=== PATIENT | female | born 1970 | race Caucasian/White ===

== ENCOUNTER 2024-09-19 11:01 | Inpatient (IN) ==
[2024-09-19 12:19] LABS: Basophils # (auto) 0.04 K/uL (0.00-0.20); Basophils % (auto) 0.5 %; Eosinophils # (auto) 0.03 K/uL (0.00-0.50); Eosinophils % (auto) 0.3 %; Hematocrit (blood only) 48.1 % (37.0-47.0); Hemoglobin 15.7 g/dl (12.0-16.0); Immature Granulocytes # (auto) 0.02 K/uL (0.01-0.20); Immature Granulocytes % (auto) 0.2 %; Mean Corpuscular Hemoglobin 28.8 pg (25.0-34.0); Mean Corpuscular Hgb Conc 32.6 g/dL (32.0-36.0); Mean Corpuscular Volume 88.3 fL (80.0-100.0); Mean Platelet Volume 9.5 fL (9.4-12.4); Monocytes # (auto) 0.84 K/uL (0.11-0.59); Monocytes % (auto) 9.5 %; Neutrophils # (auto) 6.37 K/uL (1.40-6.50); Neutrophils % (auto) 72.5 %; Platelet Count 412 K/uL (130-400); RDW Coefficient of Variation 13.2 % (11.5-14.5); RDW Standard Deviation 42.5 fL (36.4-46.3); Red Blood Count 5.45 M/uL (4.20-5.40)
[2024-09-19 12:24] LABS: INR 0.9 (0.9-1.1); Prothrombin Time 10.2 Seconds (9.0-12.0)
[2024-09-19] MEDS: fentaNYL citrate PF 100 MCG/2 ML VIAL IV PRN (12:40)
[2024-09-19] MEDS: ACETAMINOPHEN 1,000 MG/100 ML VIAL IV STA (12:41)
[2024-09-19] MEDS: PANTOprazole 40 MG/10 ML SYR IV ONE (12:41)
[2024-09-19 12:46] LABS: Calcium 9.7 mg/dl (8.6-10.3); Creatinine Clr Calc Pharmacy 116.4 ml/min; Potassium 3.7 mmol/L (3.5-5.1)
[2024-09-19 12:50] LABS: Troponin I High Sensitivity 5.1 pg/ml (0-14)
[2024-09-19 13:02] LABS: Albumin Globulin Ratio 1.3 (0.9-2); Albumin Level 4.4 gm/dl (3.4-5.0); Bilirubin,Total 1.8 mg/dl (0.2-1.0); Globulin 3.5 gm/dl (2.5-4.0); Total Protein 7.9 gm/dl (6.0-8.3)
[2024-09-19] MEDS: OPTIRAY 320 125ml IV ONE (13:23)
[2024-09-19 13:32] LABS: Appearance Urine Clear (Clear); Bacteria Urine Automated 4+ (None Seen); Bilirubin Urine Negative (Negative); Blood Urine Negative (Negative); Cast Urine Automated 0-2 /lpf (0-2); Color Urine Dark Yellow; Epithelial Cell Urine Auto 0-2 /hpf (0-2); Glucose Urine UA 2+ (Negative); Ketones Urine Negative (Negative); Leukocyte Esterase Urine Negative (Negative); Nitrite Urine Negative (Negative); Protein Urine Trace (Negative); RBC Urine Automated 0-2 /hpf (0-2); Specific Gravity Urine 1.041 (1.000-1.030); Urobilinogen Urine Negative (Negative); WBC Urine Automated 21-50 /hpf (0-5); pH Urine 7.5 (4.5-7.5)
--- NOTE | 2024-09-19 13:43 | CT Scan Report ---
CT OF THE ABDOMEN AND PELVIS WITH CONTRAST CLINICAL HISTORY: epigastric pain radiating into back COMPARISON STUDY: Renal ultrasound December 06, 2006. TECHNIQUE: Following IV administration of 120 mL of Optiray, axial images of the abdomen and pelvis w ere obtained from the lung bases to the proximal femurs. Images were reviewed in the axial, sagittal, and coronal planes. IV contrast was administered without complication. Automated exposure control w as utilized for the study. A dose lowering technique was utilized adhering to the principles of RAY Jovel. FINDINGS: The caliber of the abdominal aorta is normal. There is no abdominal aortic dissection. Ther e is mild aortoiliac atherosclerotic plaque. No pneumatosis, free air or portal venous gas is present . Mild biliary ductal dilatation is likely related to cholecystectomy. There is hepatic steatosis. No hepatic lesions are present. There is a 4.2 cm left renal cyst. The spleen, adrenal glands and pancr eas are unremarkable. Is no pancreatic ductal dilatation. The stomach is fluid-filled and mildly dist ended. There is no evidence for a bowel obstruction. The appendix is normal. Caliber and wall thickne ss of small and large bowel are normal. There is colonic diverticulosis without evidence for acute di verticulitis. Low-attenuation 1.8 cm right adnexal lesion favors an ovarian cyst. IMPRESSION: 1. Normal caliber abdominal aorta. No abdominal aortic dissection. Mild atherosclerotic plaque. 2. No bowel obstruction. No bowel wall thickening. Normal appendix. 3. Mildly distended fluid-filled stomach. 4. Hepatic steatosis. ACT 112: Negative or not required by law. Electronically signed by: Prieto Epps M.D. 09/19/2024 1:35 PM
[2024-09-19] MEDS: SODIUM CHLORIDE 0.9% 1,000 ML IV SCH (13:55)
--- NOTE | 2024-09-19 13:56 | Emergency Department Note ---
Impression & Plan Abdominal pain, Abnormal LFTs ED Provider Note ED Provider Note NAME: LCAEY KLEIN AGE:53 SEX: Female : 1970 ARRIVES VIA: Private vehicle INFORMANT: Patient ED PROVIDER(s): Magdalena Stephenson DO CHIEF COMPLAINT: Abdominal pain HPI: This is a 53-year-old female who presents to the emergency department due to concern for epigastric abdominal pain. Patient states she has had episodes of epigastric pain previously that seem to come and go. She states she had an episode overnight last night however it persisted and did not go away and has persisted into today. She states pain is similar to episode many years ago which ultimately resulted in her gallbladder being removed. She states she has been nauseated but did not vomit. She denies fevers or chills. No recent change in urine, stools, or any known sick contacts. No recent change in any medications. She states pain does radiate into her back. No treatment prior to arrival. She states she did see her PCP yesterday for a previously scheduled routine appointment. She did relay these intermittent episodes to her PCP and was scheduled for outpatient labs, CT, and ultrasound. PAST MEDICAL HISTORY:See Below PAST SURGICAL HISTORY:See Below FAMILY HISTORY:See Below SOCIAL HISTORY:See Below HOME MEDICATIONS:See Below ALLERGIES:See Below VITALS:See Below PHYSICAL EXAMINATION: GENERAL: alert, well appearing, well nourished, no distress, non-toxic EYE EXAM: normal conjunctiva, PERRL and EOM's grossly intact OROPHARYNX: no exudate, no erythema, lips, buccal mucosa, and tongue normal and mucous membranes are moist NECK: supple, no nuchal rigidity, no adenopathy, non-tender LUNGS: Clear to auscultation. Normal chest wall mechanics, no w/r/r HEART: no murmurs, S1 normal and S2 normal ABDOMEN: abdomen soft, epigastric tenderness with palpation, normo-active bowel sounds, no masses, no rebound or guarding. BACK: Back is symmetrical on inspection and there is no deformity, no midline tenderness, no CVA tenderness. SKIN: no rashes, petechiae, orbruising UPPER EXTREMITIES: upper extremities are grossly normal. FROM, nml pulses b/l. LOWER EXTREMITIES: No pitting edema. FROM, nml pulses b/l. NEURO EXAM: Normal sensorium, cranial nerves II-XII grossly intact, normal speech, no facial droop,nogross weakness of arms, no gross weakness of legs. Gross sensation intact. No ataxia. Vital Signs: reviewed and remarkable Differential Diagnosis: PUD, pancreatitis, colitis, bowel obstruction, viral syndrome, ACS, choledocholithiasis, hepatitis, foodborne illness, medication ADR, as well as others were considered MEDICAL DECISION MAKING: This is a 53-year-old female who presents emerged part due to concern for persistent epigastric pain. Patient with prior similar episodes however these were brief and self-limiting. Patient admitted to mod a coming nausea however no vomiting. She was afebrile vital signs stable. Labs drawn and sent, IV established, EKG performed at bedside interpreted me and patient monitored on telemetry. Patient sent for CT of the chest as well as abdomen and pelvis. Patient labs reveal abnormal LFTs. CTs are reassuring. Due to concern for occult choledocholithiasis, I discussed with her further evaluation with MRCP and she was in agreement. Unfortunately after discussing the patient via [place] text with Dr. Pimentel, if patient was found to have choledocholithiasis, she would need to be transferred as he is not on-call and the oncoming GI physician does not perform ERCPs. Patient made aware of this and verbalized understanding. She was maintained on IV fluids, and given IV Tylenol, IV Protonix, and IV fentanyl for her symptoms. She remained hemodynamically stable throughout. Patient signed out pending MRCP results and disposition. Consultation(s): 1542: Discussed with Dr. Pimentel. If MRCP negative, could be admitted here for hepatitis work up. 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 ER Treatment Provided: See below 1700: Patient signed out to Dr. Cameron pending MRCP results and further GI evaluation. Diagnostics Interpreted By Me: -ECG: Normal sinus at 83, normal axis, normal intervals, no acute ST/T wave changes -Cardiac Monitoring: An order was placed for continuous cardiac monitoring. The monitor shows a rate of 78 with normal sinus rhythm. -Laboratory studies: As stated above and show below. -Imaging studies: ct a/p - no perf, no sbo Triage Nursing Note Reviewed Prior/Outside Records Reviewed -office visit from PCP this week reviewed Past Med/Surg History Problem List (Updated 09/20/24 @ 16:22 by Alcides Nick MD) Hypothyroidism Hypertension Choledocholithiasis with obstruction Abnormal LFTs (Acute) Abdominal pain (Acute) Social History Smoking Status: Never smoker Hx Alcohol Use: No Hx Substance Use: No Preferred Language: Maltese Communication Ability: Effective [employer]al Program Specialist Required: No Beliefs That Will Affect Care: None Current Living Situation: Family Feels Safe at Home: Yes Safety Concerns: Feels Safe At This Time Assistive Devices: Glasses Allergies Allergies Allergy/AdvReac Type Severity Reaction Status Date / Time acetaminophen [From Vicodin] AdvReac Mild 'Made her Unverified 09/19/24 15:19 head really hot then really cold. Unpleasant exp" hydrocodone [From Vicodin] AdvReac Mild 'Made her Unverified 09/19/24 15:19 head really hot then really cold. Unpleasant exp" Home Meds Home Medications Medication Instructions Recorded Confirmed Gaviscon 1 dose PO DIRECTED PRN Other 09/19/24 09/19/24 amlodipine 5 mg tablet 5 mg PO QAM 09/19/24 09/19/24 atorvastatin 40 mg tablet 40 mg PO QAM 09/19/24 09/19/24 colestipol 1 gram tablet 2 g PO QAM 09/19/24 09/19/24 empagliflozin 25 mg tablet 25 mg PO QAM 09/19/24 09/19/24 (Jardiance) levothyroxine 112 mcg tablet 112 mcg PO QAM 09/19/24 09/19/24 losartan 100 mg tablet 100 mg PO QAM 09/19/24 09/19/24 metformin 500 mg tablet 500 mg PO QAM 09/19/24 09/19/24 omeprazole 20 mg capsule,delayed 20 mg PO QAM 09/19/24 09/19/24 release semaglutide 1 mg/dose (4 mg/3 mL) 1 mg subcut WK 09/19/24 09/19/24 subcutaneous pen injector (Ozempic) venlafaxine 25 mg tablet 25 mg PO UD 09/19/24 09/19/24 venlafaxine 37.5 mg 37.5 mg PO QAM 09/19/24 09/19/24 capsule,extended release 24 hr Results & Data (ED) Vital Signs Vital Signs - 24 hr 09/19/24 11:08 09/19/24 11:39 09/19/24 12:00 Temperature 36.8 C Temperature Source Temporal Artery Scan Pulse Rate 89 83 Pulse Rate [Right Brachial] 81 Pulse Rhythm [Right Brachial] Regular Pulse Strength [Right Brachial] Normal Respiratory Rate 18 18 Respiratory Effort / Characteristics Non-Labored Respiratory Depth Normal Respiratory Pattern Regular Blood Pressure 130/80 Blood Pressure [Right Arm] 144/79 H Blood Pressure Mean 96 Blood Pressure Mean [Right Arm] 100 Blood Pressure Position [Right Arm] Lying Pulse Oximetry 96 96 Oxygen Delivery Method Room Air Room Air Sepsis New/Unexplained Change in Mental Status No Sepsis Action Taken by Nursing No Action Required 09/19/24 12:02 09/19/24 15:00 09/19/24 15:21 Temperature Temperature Source Pulse Rate 74 Pulse Rate [Right Brachial] 107 H Pulse Rhythm [Right Brachial] Regular Pulse Strength [Right Brachial] Normal Respiratory Rate 18 Respiratory Effort / Characteristics Non-Labored Respiratory Depth Normal Respiratory Pattern Regular Blood Pressure Blood Pressure [Right Arm] 107/61 Blood Pressure Mean Blood Pressure Mean [Right Arm] 76 Blood Pressure Position [Right Arm] Pulse Oximetry 98 94 Oxygen Delivery Method Room Air Room Air Sepsis New/Unexplained Change in Mental Status Sepsis Action Taken by Nursing 09/19/24 18:56 09/19/24 19:00 Temperature Temperature Source Pulse Rate 70 Pulse Rate [Right Brachial] 69 Pulse Rhythm [Right Brachial] Pulse Strength [Right Brachial] Respiratory Rate 18 Respiratory Effort / Characteristics Non-Labored Spontaneous Respiratory Depth Normal Respiratory Pattern Regular Blood Pressure Blood Pressure [Right Arm] 116/75 Blood Pressure Mean Blood Pressure Mean [Right Arm] 88 Blood Pressure Position [Right Arm] Pulse Oximetry 94 Oxygen Delivery Method Room Air Sepsis New/Unexplained Change in Mental Status Sepsis Action Taken by Nursing Laboratory Data 09/20/24 05:38 09/20/24 05:38 Lab Results 09/19/24 Range/Units 11:35 WBC 8.80 (4.8-10.8) K/ul RBC 5.45 H (4.20-5.40) M/uL Hgb 15.7 (12.0-16.0) g/dl Hct 48.1 H (37.0-47.0) % MCV 88.3 (80.0-100.0) fL MCH 28.8 (25.0-34.0) pg MCHC 32.6 (32.0-36.0) g/dL RDW Std Deviation 42.5 (36.4-46.3) fL RDW Coeff of Teja 13.2 (11.5-14.5) % Plt Count 412 H (130-400) K/uL MPV 9.5 (9.4-12.4) fL Immature Gran % (Auto) 0.2 % Neut % (Auto) 72.5 % Lymph % (Auto) 17.0 % [place] % (Auto) 9.5 % Eos % (Auto) 0.3 % Baso % (Auto) 0.5 % Neut # (Auto) 6.37 (1.40-6.50) K/uL Lymph # (Auto) 1.50 (1.20-3.40) K/uL [place] # (Auto) 0.84 H (0.11-0.59) K/uL Eos # (Auto) 0.03 (0.00-0.50) K/uL Baso # (Auto) 0.04 (0.00-0.20) K/uL Immature Gran # (Auto) 0.02 (0.01-0.20) K/uL PT 10.2 (9.0-12.0) Seconds INR 0.9 (0.9-1.1) Sodium 140 (136-145) mmol/L Potassium 3.7 (3.5-5.1) mmol/L Chloride 103 (98-107) mmol/L Carbon Dioxide 28 (21-32) mmol/L Anion Gap 9 (3-11) BUN 17 (6-23) mg/dl Creatinine 0.63 (0.6-1.2) mg/dl Est Cr Clr Drug Dosing 116.4 ml/min eGFR 104.70 BUN/Creatinine Ratio 27.0 H (10-20) Glucose 131 H (70-99(Fasting)) mg/dl Calcium 9.7 (8.6-10.3) mg/dl Total Bilirubin 1.8 H (0.2-1.0) mg/dl AST 1622 H (13-39) U/L ALT 881 H (7-52) U/L Alkaline Phosphatase 159 H (34-104) U/L Troponin I High Sens 5.1 (0-14) pg/ml Total Protein 7.9 (6.0-8.3) gm/dl Albumin 4.4 (3.4-5.0) gm/dl Globulin 3.5 (2.5-4.0) gm/dl Albumin/Globulin Ratio 1.3 (0.9-2) Lipase 37 (11-82) U/L Urine Color Dark Yellow Urine Appearance Clear (Clear) Urine pH 7.5 (4.5-7.5) Ur Specific [place] 1.041 H (1.000-1.030) Urine Protein Trace H (Negative) Urine Glucose (UA) 2+ H (Negative) Urine Ketones Negative (Negative) Urine Blood Negative (Negative) Urine Nitrite Negative (Negative) Urine Bilirubin Negative (Negative) Urine Urobilinogen Negative (Negative) Ur Leukocyte Esterase Negative (Negative) Urine WBC (Auto) 21-50 H (0-5) /hpf Urine RBC (Auto) 0-2 (0-2) /hpf U Hyaline Cast (Auto) 0-2 (0-2) /lpf U Epithel Cells (Auto) 0-2 (0-2) /hpf Urine Bacteria (Auto) 4+ H (None Seen) Administered Medications Acetaminophen (Acetaminophen 325 Mg Tab) 650 mg PO Q4H PRN PRN Reason: Headache or Pain Stop: 10/20/24 08:05 Last Admin: 09/20/24 09:12 Dose: 650 mg Documented By: MIGUEL Amlodipine Besylate (Amlodipine Besylate 5 Mg Tab) 5 mg PO QAM [facility] Stop: 10/20/24 08:59 Last Admin: 09/20/24 09:13 Dose: 5 mg Documented By: MIGUEL Colestipol HCl (Colestipol Hcl 1 Gm Tab) 2 gm PO DAILY@1000 SON Stop: 10/20/24 09:59 Last Admin: 09/20/24 10:10 Dose: 2 gm Documented By: MIGUEL Sodium Chloride (Nss) 1,000 mls @ 125 mls/hr IV .Q8H [facility] Stop: 09/21/24 00:58 Last Admin: 09/20/24 19:54 Dose: 125 mls/hr Documented By: Infusion: 09/20/24 19:54 Dose: Infused Documented By: Admin: 09/20/24 12:18 Dose: 125 mls/hr Documented By: Infusion: 09/20/24 12:18 Dose: Infused Documented By: Infusion: 09/20/24 10:12 Dose: 0 mls/hr Documented By: Admin: 09/20/24 02:23 Dose: 125 mls/hr Documented By: MALAIKA Piperacillin Sod/Tazobactam Sod (Zosyn) 4.5 gm in 100 mls @ 25 mls/hr IV Q8H [facility]; Protocol Stop: 09/30/24 01:59 Last Infusion: 09/20/24 21:48 Dose: Infused Documented By: Admin: 09/20/24 17:47 Dose: 25 mls/hr Documented By: Infusion: 09/20/24 14:15 Dose: Infused Documented By: Admin: 09/20/24 10:10 Dose: 25 mls/hr Documented By: Infusion: 09/20/24 06:25 Dose: Infused Documented By: Admin: 09/20/24 02:23 Dose: 25 mls/hr Documented By: MALAIKA Insulin Aspart (Insulin Aspart Per Unit Charge) [facility] Stop: 10/20/24 00:58 Last Admin: 09/20/24 20:09 Dose: Not Given Documented By: Admin: 09/20/24 17:35 Dose: Not Given Documented By: Admin: 09/20/24 12:16 Dose: Not Given Documented By: Admin: 09/20/24 08:58 Dose: Not Given Documented By: Admin: 09/20/24 02:19 Dose: Not Given Documented By: MALAIKA Levothyroxine Sodium (Levothyroxine Sodium 112 Mcg Tablet) 112 mcg PO DAILYBB [facility] Stop: 10/20/24 06:29 Last Admin: 09/20/24 06:25 Dose: 112 mcg Documented By: MALAIKA Losartan Potassium (Losartan Potassium 50 Mg Tab) 100 mg PO [facility] Stop: 10/20/24 08:59 Last Admin: 09/20/24 09:14 Dose: 100 mg Documented By: MIGUEL Pantoprazole Sodium (Pantoprazole 40 Mg Tab) [facility] Stop: 10/20/24 08:59 Last Admin: 09/20/24 09:13 Dose: 40 mg Documented By: MIGUEL Venlafaxine HCl (Venlafaxine Hcl Xr 37.5 Mg Capxr) 37.5 mg PO QAM SON Stop: 10/20/24 08:59 Last Admin: 09/20/24 09:14 Dose: 37.5 mg Documented By: MIGUEL Discontinued Medications Fentanyl Citrate (Fentanyl Citrate Pf 100 Mcg/2 Ml Vial) 50 mcg IV Q15M PRN PRN Reason: Pain Stop: 10/03/24 12:14 Last Admin: 09/19/24 12:40 Dose: 50 mcg Documented By: DIANA Pantoprazole Sodium (Protonix) 40 mg in 10 mls @ 5 mls/min IV NOW ONE Stop: 09/19/24 12:16 Last Admin: 09/19/24 12:41 Dose: 5 mls/min Documented By: DIANA Acetaminophen (Ofirmev) 1,000 mg in 100 mls @ 400 mls/hr IV NOW STA Stop: 09/19/24 12:29 Last Infusion: 09/19/24 12:56 Dose: Infused Documented By: Admin: 09/19/24 12:41 Dose: 400 mls/hr Documented By: DIANA Sodium Chloride (Nss) 1,000 mls @ 250 mls/hr IV .Q4H SON Stop: 09/20/24 13:44 Last Admin: 09/20/24 07:06 Dose: Not Given Documented By: Infusion: 09/20/24 00:15 Dose: Infused Documented By: Infusion: 09/19/24 22:57 Dose: 250 mls/hr Documented By: Infusion: 09/19/24 22:20 Dose: 0 mls/hr Documented By: Admin: 09/19/24 19:21 Dose: 250 mls/hr Documented By: Infusion: 09/19/24 18:10 Dose: Infused Documented By: Admin: 09/19/24 13:55 Dose: 250 mls/hr Documented By: DIANA Piperacillin Sod/Tazobactam Sod (Zosyn) 4.5 gm in 120 mls @ 240 mls/hr IV NOW ONE Stop: 09/19/24 20:49 Last Infusion: 09/19/24 21:23 Dose: Infused Documented By: Admin: 09/19/24 20:32 Dose: 240 mls/hr Documented By: MARIIA Ioversol (Optiray 320 125ml) 120 ml IV ONCE ONE Stop: 09/19/24 13:24 Last Admin: 09/19/24 13:23 Dose: 120 ml Documented By: JAR Imaging Data Radiologist's Impression: Abdomen/Pelvis CT 09/19/24 12:31 CT OF THE ABDOMEN AND PELVIS WITH CONTRAST CLINICAL HISTORY: epigastric pain radiating into back COMPARISON STUDY: Renal ultrasound December 06, 2006. TECHNIQUE: Following IV administration of 120 mL of Optiray, axial images of the abdomen and pelvis were obtained from the lung bases to the proximal femurs. Images were reviewed in the axial, sagittal, and coronal planes. IV contrast was administered without complication. Automated exposure control was utilized for the study. A dose lowering technique was utilized adhering to the principles of ALARA. FINDINGS: The caliber of the abdominal aorta is normal. There is no abdominal aortic dissection. There is mild aortoiliac atherosclerotic plaque. No pneumatosis, free air or portal venous gas is present. Mild biliary ductal dilatation is likely related to cholecystectomy. There is hepatic steatosis. No hepatic lesions are present. There is a 4.2 cm left renal cyst. The spleen, adrenal glands and pancreas are unremarkable. Is no pancreatic ductal dilatation. The stomach is fluid-filled and mildly distended. There is no evidence for a bowel obstruction. The appendix is normal. Caliber and wall thickness of small and large bowel are normal. There is colonic diverticulosis without evidence for acute diverticulitis. Low-attenuation 1.8 cm right adnexal lesion favors an ovarian cyst. IMPRESSION: 1. Normal caliber abdominal aorta. No abdominal aortic dissection. Mild atherosclerotic plaque. 2. No bowel obstruction. No bowel wall thickening. Normal appendix. 3. Mildly distended fluid-filled stomach. 4. Hepatic steatosis. ACT 112: Negative or not required by law. Electronically signed by: Prieto Epps M.D. 09/19/2024 1:35 PM Chest CTA 09/19/24 12:31 CT angio chest dissec wo/w con CT DOSE: 3305.09 mGy.cm HISTORY: 53 years-old Female with epigastric pain into back. Acute chest and upper abdominal pain TECHNIQUE: Multiple CTA images of the chest were obtained with and without the intravenous administration of 120 ml Optiray. Coronal and sagittal MIPS were obtained from the axial data set and were submitted for review. All measurements were obtained according to NASCET criteria. A dose lowering technique was utilized adhering to the principles of ALARA. COMPARISON: CT abdomen and pelvis of same day, chest radiographs 07/19/2007 FINDINGS: CTA: Heart is normal in size. No pericardial effusion. Mild coronary artery calcifications. Mild atherosclerosis of the thoracic aorta without aneurysm or dissection. Patency of the imaged great vessels. No intramural or mediastinal hematoma. Normal pulmonary artery. CT CHEST: Thyroid nodules measure up to 10 mm. Indeterminate 1.1 x 1.4 cm ovoid soft tissue attenuating lesion within the anterior retrosternal mediastinal and image 77 series 10. No pathologic hilar or axillary lymph nodes. No pneumothorax, pleural effusion, airspace consolidation or pulmonary edema. There is a 1.7 cm subpleural lipoma of the lateral left hemithorax on image 113 series 10. There is mild subsegmental dependent bibasilar atelectasis. Central airways are patent. Unremarkable esophagus. Fatty infiltration of the liver. CT abdomen and pelvis is dictated separately. No acute fracture. IMPRESSION: 1. Unremarkable CTA of the chest. No thoracic aortic aneurysm or dissection. 2. No pulmonary emboli. 3. No pleural effusion or airspace consolidation. 4. 1.1 x 1.4 cm nodule within the anterior mediastinum may represent a mildly enlarged lymph node. Three-month follow-up chest CT recommended. ACT 112: Negative or not required by law. The above report was generated using voice recognition software. It may contain grammatical, syntax or spelling errors. Electronically signed by: Jerardo Hernandez M.D. 09/19/2024 1:52 PM Cholangiopancreatography MRI 09/19/24 14:14 MRCP ABDOMEN WITHOUT IV CONTRAST INDICATION: TECHNIQUE: MRI of the abdomen is obtained using multiplanar T1-weighted, T2-weighted, and diffusion-weighted sequences, including dynamic [id number] sequences. Thick slab and 3D MRCP are obtained. INTRAVENOUS CONTRAST: None COMPARISON: None available. FINDINGS: LOWER CHEST: Trace pleural fluids may be present. LIVER: Scattered hepatic cysts or hemangiomas. BILE DUCTS: There is moderate intrahepatic biliary dilation. There is distention of the common bile duct measuring up to 1.0 cm in diameter. There are hypointense materials measuring up to 5 mm in the distal CBD just upstream to the ampulla resulting in filling defects. There is also fairly abrupt tapering appearance of the common bile duct at the site. GALLBLADDER: Not definitively visualized, may be surgically absent or underdistended. SPLEEN: Normal. PANCREAS: Normal. ADRENAL GLANDS: Normal. KIDNEYS: Renal cysts. VISUALIZED BOWEL: No obstruction. VISUALIZED PERITONEUM: No ascites. LYMPH NODES: No lymphadenopathy. RETROPERITONEUM/VESSELS: Normal caliber abdominal aorta. ABDOMINAL WALL: Normal. BONES: Normal marrow signal. IMPRESSION: Suspected obstructive choledocholithiasis in the distal common bile duct at the ampulla resulting in upstream biliary obstruction with moderate intrahepatic biliary dilation. Superimposed additional process such as stricturing may be also present. Recommend further evaluation with ERCP. Electronically signed by Roque Yap 09-19-2024 7:30 PM Discharge Plan Visit Data Chief Complaint: Abdominal Pain Stated Complaint: ABD PAIN/TRAVELS INTO BACK ED Provider: Mitul Cameron Discharge Problem: Abdominal pain, Abnormal LFTs Patient Disposition: Admitted As Inpatient Discharge Instructions Interventions: ED Discharge Assessment Last Done: 09/20/24 00:20
--- NOTE | 2024-09-19 14:00 | CT Scan Report ---
CT angio chest dissec wo/w con CT DOSE: 3305.09 mGy.cm HISTORY: 53 years-old Female with epigastric pain into back. Acute chest and upper abdominal pain TECHNIQUE: Multiple CTA images of the chest were obtained with and without the intravenous administra tion of 120 ml Optiray. Coronal and sagittal MIPS were obtained from the axial data set and were sub mitted for review. All measurements were obtained according to NASCET criteria. A dose lowering tech nique was utilized adhering to the principles of ALARA. COMPARISON: CT abdomen and pelvis of same day, chest radiographs 07/19/2007 FINDINGS: CTA: Heart is normal in size. No pericardial effusion. Mild coronary artery calcifications. Mild atheroscl erosis of the thoracic aorta without aneurysm or dissection. Patency of the imaged great vessels. No intramural or mediastinal hematoma. Normal pulmonary artery. CT CHEST: Thyroid nodules measure up to 10 mm. Indeterminate 1.1 x 1.4 cm ovoid soft tissue attenuating lesion within the anterior retrosternal mediastinal and image 77 series 10. No pathologic hilar or axillary lymph nodes. No pneumothorax, pleural effusion, airspace consolidation or pulmonary edema. There is a 1.7 cm subpl eural lipoma of the lateral left hemithorax on image 113 series 10. There is mild subsegmental depend ent bibasilar atelectasis. Central airways are patent. Unremarkable esophagus. Fatty infiltration of the liver. CT abdomen and pelvis is dictated separately. No acute fracture. IMPRESSION: 1. Unremarkable CTA of the chest. No thoracic aortic aneurysm or dissection. 2. No pulmonary emboli. 3. No pleural effusion or airspace consolidation. 4. 1.1 x 1.4 cm nodule within the anterior mediastinum may represent a mildly enlarged lymph node. Th ree-month follow-up chest CT recommended. ACT 112: Negative or not required by law. The above report was generated using voice recognition software. It may contain grammatical, syntax o r spelling errors. Electronically signed by: Jerardo Hernandez M.D. 09/19/2024 1:52 PM
--- NOTE | 2024-09-19 15:08 | Electrocardiogram Report ---
Test Reason : Blood Pressure : */* mmHG Vent. Rate : 83 BPM Atrial Rate : 83 BPM P-R Int : 184 ms QRS Dur : 90 ms QT Int : 394 ms P-R-T Axes : 56 -16 42 degrees QTcB Int : 462 ms Normal sinus rhythm Poor R wave progression, consider anterior WA vs. lead placement vs. LVH Abnormal ECG No previous ECGs available Confirmed by Aaron Gracia ([id number]) on 09/19/2024 3:08:08 PM Referred By: REFERRED SELF Confirmed By: Aaron Gracia
--- NOTE | 2024-09-19 16:54 | Emergency Department Note ---
ED Visit Note 1651: Signout from Dr. Stephenson. 53-year-old female with abdominal pain for the last 2 days. White blood cell count normal. Labs show total bilirubin 1.8 AST 1622 ALT 881 alkaline phosphatase [birth year][address] negative. Awaiting MRCP. Based off of MRCP will speak with GI to see if the patient can stay here or needs to be transferred for an ERCP. Dr. Stephenson spoke with Dr. Pimentel from who stated that the MRCP does not show any ductal dilatation then the patient can be admitted here for hepatitis workup. 2001: MRCP shows suspected obstructive choledocholithiasis in the distal common bile duct at the ampulla resulting in upstream biliary obstruction with moderate intraventricular dilatation. Superimposed additional processes such as stricturing may also be present. They recommended an ERCP. Contacted [facility]. Spoke with Dr. Hawthorne who stated [facility] cannot do an ERCP until Sunday and it does not need to be done emergently as patient does not have findings consistent with cholangitis. He asks to see if the patient can go to [place] and if they cannot accept the patient to [place] he states they will accept the patient to [place]. Transfer center will contact [facility]. 2014: Spoke with Dr. Fontaine from [facility]. She recommends that the patient be transferred to [place] on Sunday night so procedure could be done Sunday morning as there is no one who can do the procedure until Sunday. She recommends giving the patient Zosyn and keep the patient NPO. I discussed this with the patient and she is very displeased with this. Patient family is asking if we can speak with [facility] to see if they could be transferred there to see if the procedure can be done any sooner. 2040: Spoke with Dr. Fern MILLS and Dr. Quinton APONTE at [facility]. They stated they would not be able to do the procedure emergently either. They stated they would probably do it on Sunday and if the patient preferred to go to [place] Sunday night then they can be transferred to [place] instead of going to a [facility] facility as planned on Sunday. 2104: Vital signs stable. Patient is expressing extreme dissatisfaction displeasure with the fact that no facility would be able to do an emergent procedure on her and she would have to wait until Sunday. She is asking about leaving and being discharged to get an ERCP outpatient but I recommended against this as I cannot schedule her for an ERCP with [facility]. I also explained to her the recommendation to continue getting antibiotics Zosyn which there is no good oral alternative. After long discussion, she states she does agree to stay in this hospital be transferred to [place] on Sunday or Sunday for procedure to be done on Sunday. [facility]. 2116: Vital signs stable. Spoke with Dr. Chand who agreed to accept the patient with the anticipated plan to transfer the patient on Sunday for a procedure on Sunday. .
--- NOTE | 2024-09-19 19:30 | Magnetic Resonance Report ---
MRCP ABDOMEN WITHOUT IV CONTRAST INDICATION: TECHNIQUE: MRI of the abdomen is obtained using multiplanar T1-weighted, T2-weighted, and diffusion-weighted sequences, including dynamic [id number] sequences. Thick slab and 3D MRCP are obtained. INTRAVENOUS CONTRAST: None COMPARISON: None available. FINDINGS: LOWER CHEST: Trace pleural fluids may be present. LIVER: Scattered hepatic cysts or hemangiomas. BILE DUCTS: There is moderate intrahepatic biliary dilation. There is distention of the common bile duct measuring up to 1.0 cm in diameter. There are hypointense materials measuring up to 5 mm in the distal CBD just upstream to the ampulla resulting in filling defects. There is also fairly abrupt tapering appearance of the common bile duct at the site. GALLBLADDER: Not definitively visualized, may be surgically absent or underdistended. SPLEEN: Normal. PANCREAS: Normal. ADRENAL GLANDS: Normal. KIDNEYS: Renal cysts. VISUALIZED BOWEL: No obstruction. VISUALIZED PERITONEUM: No ascites. LYMPH NODES: No lymphadenopathy. RETROPERITONEUM/VESSELS: Normal caliber abdominal aorta. ABDOMINAL WALL: Normal. BONES: Normal marrow signal. IMPRESSION: Suspected obstructive choledocholithiasis in the distal common bile duct at the ampulla resulting in upstream biliary obstruction with moderate intrahepatic biliary dilation. Superimposed additional process such as stricturing may be also present. Recommend further evaluation with ERCP. Electronically signed by Roque Yap 09-19-2024 7:30 PM
[2024-09-19] MEDS: PIPERACILLIN/TAZOBACTAM 4.5 GM/120 ML BAG IV ONE (20:32)
--- NOTE | 2024-09-19 23:34 | History & Physical Report ---
Date of Service September 19, 2024 Assessment & Plan (1) Abnormal LFTs: Plan: 53-year-old female with past medical history significant for type 2 diabetes, hypothyroidism, hyperlipidemia, hypertension, calculus of kidney, depression with anxiety, PPD positive presents with epigastric abdominal pain and found to have significant elevated LFTs and choledocholithiasis on MRI scan. Patient says she is having these epigastric pains on and off for about a week. Pain is in epigastric region radiating to the back. And also has some discomfort in the shoulders. Associated with nausea. She could not eat much today. She had a history of similar episode many years ago and had gallbladder removed. Denies any fevers. Normal bowel and bladder movements. Denies any headache or dizziness. No runny nose or sore throat. No cough. No difficulty swallowing. No chest pain or shortness of breath. Currently resting comfortably and hemodynamically stable. With the pain medication , pain is improved. Abdominal pain In epigastric region radiating to the back Total bili 1.8 AST 1622 ALT 881 Alkaline phosphatase 159 CTA chest okay except for 1.1 into 1.4 cm nodule in the mediastinum and needs 3 months follow-up CT abdomen pelvis okay MRCP shows;"Suspected obstructive choledocholithiasis in the distal common bile duct at the ampulla resulting in upstream biliary obstruction with moderate intrahepatic biliary dilation. Superimposed additional process such as stricturing may be also present." ER talked with [facility] and [place] for transfer for ERCP but no ERCP service available until Sunday in all above places as it was thought it was not an emergency. Plan to transfer on Sunday evening to [facility] ER started on Zosyn which will be continued Pain control IV fluids Follow repeat LFTs GI consult in a.m. Hypertension Continue amlodipine and losartan Will monitor Hyperlipidemia Hold statin for now Hypothyroidism Continue Synthyroid Diabetes Hold home p.o. medications Insulin sliding scale Will check HbA1c levels Will monitor the blood sugars DVT prophylaxis SCDs for now Disposition Close monitor in med/telemetry Full code History of Present Illness Chief Complaint: Abdominal pain and elevated LFTs Primary Care Provider: Renu Coley DO 53-year-old female with past medical history significant for type 2 diabetes, hypothyroidism, hyperlipidemia, hypertension, calculus of kidney, depression with anxiety, PPD positive presents with epigastric abdominal pain and found to have significant elevated LFTs and choledocholithiasis on MRI scan. Patient says she is having these epigastric pains on and off for about a week. Pain is in epigastric region radiating to the back. And also has some discomfort in the shoulders. Associated with nausea. She could not eat much today. She had a history of similar episode many years ago and had gallbladder removed. Denies any fevers. Normal bowel and bladder movements. Denies any headache or dizziness. No runny nose or sore throat. No cough. No difficulty swallowing. No chest pain or shortness of breath. Currently resting comfortably and hemodynamically stable. With the pain medication , pain is improved. Past medical history. As mentioned above Past surgical history. Dental surgery. Fluoroscopy cholecystogram gallbladder with contrast. Social history. . Quit smoking 1990. No alcohol use. No drug use. Family history. Brother had cirrhosis. Father had MT. Hypertension. Sister has multiple sclerosis. Mother has rheumatoid arthritis. Allergies Allergy/AdvReac Type Severity Reaction Status Date / Time acetaminophen [From Vicodin] AdvReac Mild 'Made her Unverified 09/19/24 15:19 head really hot then really cold. Unpleasant exp" hydrocodone [From Vicodin] AdvReac Mild 'Made her Unverified 09/19/24 15:19 head really hot then really cold. Unpleasant exp" Home Medications Medication Instructions Recorded Confirmed Type Gaviscon 1 dose PO DIRECTED PRN Other 09/19/24 09/19/24 History amlodipine 5 mg tablet 5 mg PO QAM 09/19/24 09/19/24 History atorvastatin 40 mg tablet 40 mg PO QAM 09/19/24 09/19/24 History colestipol 1 gram tablet 2 g PO QAM 09/19/24 09/19/24 History empagliflozin 25 mg tablet 25 mg PO QAM 09/19/24 09/19/24 History (Jardiance) levothyroxine 112 mcg tablet 112 mcg PO QAM 09/19/24 09/19/24 History losartan 100 mg tablet 100 mg PO QAM 09/19/24 09/19/24 History metformin 500 mg tablet 500 mg PO QAM 09/19/24 09/19/24 History omeprazole 20 mg capsule,delayed 20 mg PO QAM 09/19/24 09/19/24 History release semaglutide 1 mg/dose (4 mg/3 mL) 1 mg subcut WK 09/19/24 09/19/24 History subcutaneous pen injector (Ozempic) venlafaxine 25 mg tablet 25 mg PO UD 09/19/24 09/19/24 History venlafaxine 37.5 mg 37.5 mg PO QAM 09/19/24 09/19/24 History capsule,extended release 24 hr Past Med/Surg History Problem List (Updated 09/19/24 @ 13:56 by Magdalena Stephenson, DO) Abnormal LFTs (Acute) Abdominal pain (Acute) Social History (System 01/06/21 @ 08:14 by Aubrie Lindquist) Smoking Status: Never smoker Hx Alcohol Use: No Hx Substance Use: No Preferred Language: Upper Sorbian Communication Ability: Effective Overhead Line Worker Required: No Beliefs That Will Affect Care: None Current Living Situation: Family Feels Safe at Home: Yes Safety Concerns: Feels Safe At This Time Assistive Devices: Glasses Review of Systems Review of Systems: All systems reviewed & are unremarkable except as noted in HPI & below Physical Exam Physical Exam: General-Not in distress Head- atraumatic Eyes- PERRL. ENT- oropharynx clear Neck- supple, no JVD. Lungs- clear to auscultation no wheezing or crackles Heart- regular rate and rhythm; no murmur, no gallop. Abdomen- normal bowel sounds, soft, nontender, no distension Extremities- no pretibial edema, no erythema seen Neuro- alert, oriented PERRL, no facial palsy; no dysarthria; moves extremities Results & Data Results & Data Vital Signs (Past 12 Hours) Vital Signs Pulse Pulse Resp BP Pulse Ox O2 Del Method 09/19/24 23:00 70 18 137/71 95 Room Air 09/19/24 21:00 74 18 129/87 96 Room Air 09/19/24 19:00 69 18 116/75 94 Room Air 09/19/24 18:56 70 09/19/24 15:21 74 09/19/24 15:00 107 H 18 107/61 94 Room Air 09/19/24 12:02 98 Room Air 09/19/24 12:00 83 09/19/24 11:39 81 18 144/79 H 96 Room Air Diagnostic Findings Laboratory Results WBC 8.80 K/ul (4.8-10.8) 09/19/24 11:35 RBC 5.45 M/uL (4.20-5.40) H 09/19/24 11:35 Hgb 15.7 g/dl (12.0-16.0) 09/19/24 11:35 Hct 48.1 % (37.0-47.0) H 09/19/24 11:35 MCV 88.3 fL (80.0-100.0) 09/19/24 11:35 MCH 28.8 pg (25.0-34.0) 09/19/24 11:35 MCHC 32.6 g/dL (32.0-36.0) 09/19/24 11:35 RDW Std Deviation 42.5 fL (36.4-46.3) 09/19/24 11:35 RDW Coeff of Teja 13.2 % (11.5-14.5) 09/19/24 11:35 Plt Count 412 K/uL (130-400) H 09/19/24 11:35 MPV 9.5 fL (9.4-12.4) 09/19/24 11:35 Immature Gran % (Auto) 0.2 % 09/19/24 11:35 Neut % (Auto) 72.5 % 09/19/24 11:35 Lymph % (Auto) 17.0 % 09/19/24 11:35 Gray % (Auto) 9.5 % 09/19/24 11:35 Eos % (Auto) 0.3 % 09/19/24 11:35 Baso % (Auto) 0.5 % 09/19/24 11:35 Neut # (Auto) 6.37 K/uL (1.40-6.50) 09/19/24 11:35 Lymph # (Auto) 1.50 K/uL (1.20-3.40) 09/19/24 11:35 Gray # (Auto) 0.84 K/uL (0.11-0.59) H 09/19/24 11:35 Eos # (Auto) 0.03 K/uL (0.00-0.50) 09/19/24 11:35 Baso # (Auto) 0.04 K/uL (0.00-0.20) 09/19/24 11:35 Immature Gran # (Auto) 0.02 K/uL (0.01-0.20) 09/19/24 11:35 PT 10.2 Seconds (9.0-12.0) 09/19/24 11:35 INR 0.9 (0.9-1.1) 09/19/24 11:35 Sodium 140 mmol/L (136-145) 09/19/24 11:35 Potassium 3.7 mmol/L (3.5-5.1) 09/19/24 11:35 Chloride 103 mmol/L (98-107) 09/19/24 11:35 Carbon Dioxide 28 mmol/L (21-32) 09/19/24 11:35 Anion Gap 9 (3-11) 09/19/24 11:35 BUN 17 mg/dl (6-23) 09/19/24 11:35 Creatinine 0.63 mg/dl (0.6-1.2) 09/19/24 11:35 Est Cr Clr Drug Dosing 116.4 ml/min 09/19/24 11:35 eGFR 104.70 09/19/24 11:35 BUN/Creatinine Ratio 27.0 (10-20) H 09/19/24 11:35 Glucose 131 mg/dl (70-99(Fasting)) H 09/19/24 11:35 Calcium 9.7 mg/dl (8.6-10.3) 09/19/24 11:35 Total Bilirubin 1.8 mg/dl (0.2-1.0) H 09/19/24 11:35 AST 1622 U/L (13-39) H 09/19/24 11:35 ALT 881 U/L (7-52) H 09/19/24 11:35 Alkaline Phosphatase 159 U/L (34-104) H 09/19/24 11:35 Troponin I High Sens 5.1 pg/ml (0-14) 09/19/24 11:35 Total Protein 7.9 gm/dl (6.0-8.3) 09/19/24 11:35 Albumin 4.4 gm/dl (3.4-5.0) 09/19/24 11:35 Globulin 3.5 gm/dl (2.5-4.0) 09/19/24 11:35 Albumin/Globulin Ratio 1.3 (0.9-2) 09/19/24 11:35 Lipase 37 U/L (11-82) 09/19/24 11:35 Urine Color Dark Yellow 09/19/24 11:35 Urine Appearance Clear (Clear) 09/19/24 11:35 Urine pH 7.5 (4.5-7.5) 09/19/24 11:35 Ur Specific [place] 1.041 (1.000-1.030) H 09/19/24 11:35 Urine Protein Trace (Negative) H 09/19/24 11:35 Urine Glucose (UA) 2+ (Negative) H 09/19/24 11:35 Urine Ketones Negative (Negative) 09/19/24 11:35 Urine Blood Negative (Negative) 09/19/24 11:35 Urine Nitrite Negative (Negative) 09/19/24 11:35 Urine Bilirubin Negative (Negative) 09/19/24 11:35 Urine Urobilinogen Negative (Negative) 09/19/24 11:35 Ur Leukocyte Esterase Negative (Negative) 09/19/24 11:35 Urine WBC (Auto) 21-50 /hpf (0-5) H 09/19/24 11:35 Urine RBC (Auto) 0-2 /hpf (0-2) 09/19/24 11:35 U Hyaline Cast (Auto) 0-2 /lpf (0-2) 09/19/24 11:35 U Epithel Cells (Auto) 0-2 /hpf (0-2) 09/19/24 11:35 Urine Bacteria (Auto) 4+ (None Seen) H 09/19/24 11:35 Impressions Abdomen/Pelvis CT 09/19/24 12:31 CT OF THE ABDOMEN AND PELVIS WITH CONTRAST CLINICAL HISTORY: epigastric pain radiating into back COMPARISON STUDY: Renal ultrasound December 06, 2006. TECHNIQUE: Following IV administration of 120 mL of Optiray, axial images of the abdomen and pelvis were obtained from the lung bases to the proximal femurs. Images were reviewed in the axial, sagittal, and coronal planes. IV contrast was administered without complication. Automated exposure control was utilized for the study. A dose lowering technique was utilized adhering to the principles of ALARA. FINDINGS: The caliber of the abdominal aorta is normal. There is no abdominal aortic dissection. There is mild aortoiliac atherosclerotic plaque. No pneumatosis, free air or portal venous gas is present. Mild biliary ductal dilatation is likely related to cholecystectomy. There is hepatic steatosis. No hepatic lesions are present. There is a 4.2 cm left renal cyst. The spleen, adrenal glands and pancreas are unremarkable. Is no pancreatic ductal dilatation. The stomach is fluid-filled and mildly distended. There is no evidence for a bowel obstruction. The appendix is normal. Caliber and wall thickness of small and large bowel are normal. There is colonic diverticulosis without evidence for acute diverticulitis. Low-attenuation 1.8 cm right adnexal lesion favors an ovarian cyst. IMPRESSION: 1. Normal caliber abdominal aorta. No abdominal aortic dissection. Mild atherosclerotic plaque. 2. No bowel obstruction. No bowel wall thickening. Normal appendix. 3. Mildly distended fluid-filled stomach. 4. Hepatic steatosis. ACT 112: Negative or not required by law. Electronically signed by: Prieto Epps M.D. 09/19/2024 1:35 PM Chest CTA 09/19/24 12:31 CT angio chest dissec wo/w con CT DOSE: 3305.09 mGy.cm HISTORY: 53 years-old Female with epigastric pain into back. Acute chest and upper abdominal pain TECHNIQUE: Multiple CTA images of the chest were obtained with and without the intravenous administration of 120 ml Optiray. Coronal and sagittal MIPS were obtained from the axial data set and were submitted for review. All measurements were obtained according to NASCET criteria. A dose lowering technique was utilized adhering to the principles of ALARA. COMPARISON: CT abdomen and pelvis of same day, chest radiographs 07/19/2007 FINDINGS: CTA: Heart is normal in size. No pericardial effusion. Mild coronary artery calcifications. Mild atherosclerosis of the thoracic aorta without aneurysm or dissection. Patency of the imaged great vessels. No intramural or mediastinal hematoma. Normal pulmonary artery. CT CHEST: Thyroid nodules measure up to 10 mm. Indeterminate 1.1 x 1.4 cm ovoid soft tissue attenuating lesion within the anterior retrosternal mediastinal and image 77 series 10. No pathologic hilar or axillary lymph nodes. No pneumothorax, pleural effusion, airspace consolidation or pulmonary edema. There is a 1.7 cm subpleural lipoma of the lateral left hemithorax on image 113 series 10. There is mild subsegmental dependent bibasilar atelectasis. Central airways are patent. Unremarkable esophagus. Fatty infiltration of the liver. CT abdomen and pelvis is dictated separately. No acute fracture. IMPRESSION: 1. Unremarkable CTA of the chest. No thoracic aortic aneurysm or dissection. 2. No pulmonary emboli. 3. No pleural effusion or airspace consolidation. 4. 1.1 x 1.4 cm nodule within the anterior mediastinum may represent a mildly enlarged lymph node. Three-month follow-up chest CT recommended. ACT 112: Negative or not required by law. The above report was generated using voice recognition software. It may contain grammatical, syntax or spelling errors. Electronically signed by: Jerardo Hernandez M.D. 09/19/2024 1:52 PM Cholangiopancreatography MRI 09/19/24 14:14 MRCP ABDOMEN WITHOUT IV CONTRAST INDICATION: TECHNIQUE: MRI of the abdomen is obtained using multiplanar T1-weighted, T2-weighted, and diffusion-weighted sequences, including dynamic [id number] sequences. Thick slab and 3D MRCP are obtained. INTRAVENOUS CONTRAST: None COMPARISON: None available. FINDINGS: LOWER CHEST: Trace pleural fluids may be present. LIVER: Scattered hepatic cysts or hemangiomas. BILE DUCTS: There is moderate intrahepatic biliary dilation. There is distention of the common bile duct measuring up to 1.0 cm in diameter. There are hypointense materials measuring up to 5 mm in the distal CBD just upstream to the ampulla resulting in filling defects. There is also fairly abrupt tapering appearance of the common bile duct at the site. GALLBLADDER: Not definitively visualized, may be surgically absent or underdistended. SPLEEN: Normal. PANCREAS: Normal. ADRENAL GLANDS: Normal. KIDNEYS: Renal cysts. VISUALIZED BOWEL: No obstruction. VISUALIZED PERITONEUM: No ascites. LYMPH NODES: No lymphadenopathy. RETROPERITONEUM/VESSELS: Normal caliber abdominal aorta. ABDOMINAL WALL: Normal. BONES: Normal marrow signal. IMPRESSION: Suspected obstructive choledocholithiasis in the distal common bile duct at the ampulla resulting in upstream biliary obstruction with moderate intrahepatic biliary dilation. Superimposed additional process such as stricturing may be also present. Recommend further evaluation with ERCP. Electronically signed by Roque Yap 09-19-2024 7:30 PM ECG Additional Comments: ECG. Normal sinus rhythm rate of 83. Poor R wave progression. Code Status & VTE Plan VTE Prophylaxis Plan VTE Prophylaxis will be ordered: Yes
[2024-09-20] MEDS ORDERED: NITROGLYCERIN SL 0.4 MG/TAB TAB SL PRN (00:59)
[2024-09-20] MEDS ORDERED: CARBOHYDRATES FOR HYPOGLYCEMIA PO PRN (00:59)
[2024-09-20] MEDS ORDERED: GLUCOSE 10 TAB/TUBE PO PRN (00:59)
[2024-09-20] MEDS ORDERED: HYDROmorphone INJ 0.5 MG/0.5 ML SYR IV PRN ×2 (00:59)
[2024-09-20] MEDS ORDERED: DEXTROSE 50% 50 ML SYRINGE IV PRN (00:59)
[2024-09-20] MEDS ORDERED: GLUCOSE 40% GEL 15 GM TUBE PO PRN (00:59)
[2024-09-20] MEDS ORDERED: GLUCAGON FOR INJ 1 MG VIAL SQ PRN (00:59)
[2024-09-20] MEDS: INSULIN ASPART PER UNIT CHARGE SC SCH (02:19)
[2024-09-20] MEDS: PIPERACILLIN/TAZOBACTAM 4.5 GM/100 ML BAG IV SCH (02:23)
[2024-09-20] MEDS: SODIUM CHLORIDE 0.9% 1,000 ML IV SCH (02:23)
[2024-09-20] MEDS: LEVOTHYROXINE SODIUM 112 MCG TABLET PO SCH (06:25)
[2024-09-20 06:42] LABS: Basophils # (auto) 0.02 K/uL (0.00-0.20); Basophils % (auto) 0.3 %; Eosinophils # (auto) 0.12 K/uL (0.00-0.50); Hematocrit (blood only) 42.6 % (37.0-47.0); Hemoglobin 14.1 g/dl (12.0-16.0); Immature Granulocytes # (auto) 0.01 K/uL (0.01-0.20); Immature Granulocytes % (auto) 0.2 %; Lymphocytes # (auto) 1.41 K/uL (1.20-3.40); Lymphocytes % (auto) 23.9 %; Mean Corpuscular Hemoglobin 29.1 pg (25.0-34.0); Mean Corpuscular Hgb Conc 33.1 g/dL (32.0-36.0); Mean Corpuscular Volume 87.8 fL (80.0-100.0); Mean Platelet Volume 9.7 fL (9.4-12.4); Monocytes # (auto) 0.44 K/uL (0.11-0.59); Monocytes % (auto) 7.4 %; Neutrophils # (auto) 3.91 K/uL (1.40-6.50); Neutrophils % (auto) 66.2 %; Platelet Count 348 K/uL (130-400); RDW Coefficient of Variation 13.4 % (11.5-14.5); RDW Standard Deviation 43.1 fL (36.4-46.3); Red Blood Count 4.85 M/uL (4.20-5.40); White Blood Count 5.91 K/ul (4.8-10.8)
[2024-09-20] MEDS ORDERED: COLESTIPOL HCL 1 GM TAB PO SCH (07:00)
[2024-09-20 07:03] LABS: BUN Creatinine Ratio 19.1 (10-20); Calcium 8.7 mg/dl (8.6-10.3); Magnesium 2.1 mg/dl (1.7-2.4); Potassium 3.6 mmol/L (3.5-5.1)
[2024-09-20 08:35] LABS: Estimated Average Glucose 154 mg/dl
[2024-09-20] MEDS: ACETAMINOPHEN 325 MG TAB PO PRN (09:12)
[2024-09-20] MEDS: amLODIPine BESYLATE 5 MG TAB PO SCH (09:13)
[2024-09-20] MEDS: PANTOprazole 40 MG TAB PO SCH (09:13)
[2024-09-20] MEDS: VENLAFAXINE HCL XR 37.5 MG CAPXR PO SCH (09:14)
[2024-09-20] MEDS: LOSARTAN POTASSIUM 50 MG TAB PO SCH (09:14)
[2024-09-20] MEDS: COLESTIPOL HCL 1 GM TAB PO SCH (10:10)
--- NOTE | 2024-09-20 10:50 | Gastrointestinal Consultation ---
Date of Consultation September 20, 2024 Assessment & Plan (1) Abnormal LFTs: Pleasant woman with symptomatic choledocholithiasis. She needs ERCP and is scheduled to be transferred tomorrow. Nothing further to add other than semaglutide is associated with gallstone formation History of Present Illness Reason for Consultation: elevated LFT's Requesting Physician: 53 year old female who was admitted after having had severe upper abdominal pain going into her back "just like her gallbladder pain when she had her gallbladder out 26 years ago". She was found to have elevated LFT's and MRCP that showed CBD stones. Transfer was refused until Sunday night so I am consulted. She currently feels well. Attending Physician: Alcides Nick MD Allergies Allergy/AdvReac Type Severity Reaction Status Date / Time acetaminophen [From Vicodin] AdvReac Mild 'Made her Unverified 09/19/24 15:19 head really hot then really cold. Unpleasant exp" hydrocodone [From Vicodin] AdvReac Mild 'Made her Unverified 09/19/24 15:19 head really hot then really cold. Unpleasant exp" Home Medications Medication Instructions Recorded Confirmed Type Gaviscon 1 dose PO DIRECTED PRN Other 09/19/24 09/19/24 History amlodipine 5 mg tablet 5 mg PO QAM 09/19/24 09/19/24 History atorvastatin 40 mg tablet 40 mg PO QAM 09/19/24 09/19/24 History colestipol 1 gram tablet 2 g PO QAM 09/19/24 09/19/24 History empagliflozin 25 mg tablet 25 mg PO QAM 09/19/24 09/19/24 History (Jardiance) levothyroxine 112 mcg tablet 112 mcg PO QAM 09/19/24 09/19/24 History losartan 100 mg tablet 100 mg PO QAM 09/19/24 09/19/24 History metformin 500 mg tablet 500 mg PO QAM 09/19/24 09/19/24 History omeprazole 20 mg capsule,delayed 20 mg PO QAM 09/19/24 09/19/24 History release semaglutide 1 mg/dose (4 mg/3 mL) 1 mg subcut WK 09/19/24 09/19/24 History subcutaneous pen injector (Ozempic) venlafaxine 25 mg tablet 25 mg PO UD 09/19/24 09/19/24 History venlafaxine 37.5 mg 37.5 mg PO QAM 09/19/24 09/19/24 History capsule,extended release 24 hr Patient History Social History Smoking Status: Never smoker Hx Alcohol Use: No Hx Substance Use: No Preferred Language: Qatari Communication Ability: Effective Clinical Engineering Manager Required: No Beliefs That Will Affect Care: None Current Living Situation: Family Feels Safe at Home: Yes Safety Concerns: Feels Safe At This Time Assistive Devices: Glasses Review of Systems Review of Systems: All systems reviewed & are unremarkable except as noted in HPI & below Physical Exam Constitutional: WD/WN, vitals as above Neck: trachea midline, no thyromegaly Respiratory: normal respiratory effort, lungs clear to auscultation Cardiovascular: RRR, no murmur, no edema Gastrointestinal (Abdomen): normal bowel sounds, soft, nontender, no hepatosplenomegaly Results & Data Vital Signs (Past 12 Hours) Vital Signs Temp Pulse Pulse Resp BP Pulse Ox O2 Del Method 09/20/24 09:00 36.7 C 73 14 120/70 95 Room Air 09/20/24 07:20 73 09/20/24 00:31 37.1 C 79 18 135/77 95 Room Air 09/20/24 00:14 67 18 128/76 93 09/19/24 23:25 64 09/19/24 23:00 70 18 137/71 95 Room Air Laboratory Results 09/20/24 09/20/24 09/20/24 Range/Units 07:46 05:38 02:11 WBC 5.91 (4.8-10.8) K/ul RBC 4.85 (4.20-5.40) M/uL Hgb 14.1 (12.0-16.0) g/dl Hct 42.6 (37.0-47.0) % MCV 87.8 (80.0-100.0) fL MCH 29.1 (25.0-34.0) pg MCHC 33.1 (32.0-36.0) g/dL RDW Std Deviation 43.1 (36.4-46.3) fL RDW Coeff of Teja 13.4 (11.5-14.5) % Plt Count 348 (130-400) K/uL MPV 9.7 (9.4-12.4) fL Immature Gran % (Auto) 0.2 % Neut % (Auto) 66.2 % Lymph % (Auto) 23.9 % [place] % (Auto) 7.4 % Eos % (Auto) 2.0 % Baso % (Auto) 0.3 % Neut # (Auto) 3.91 (1.40-6.50) K/uL Lymph # (Auto) 1.41 (1.20-3.40) K/uL [place] # (Auto) 0.44 (0.11-0.59) K/uL Eos # (Auto) 0.12 (0.00-0.50) K/uL Baso # (Auto) 0.02 (0.00-0.20) K/uL Immature Gran # (Auto) 0.01 (0.01-0.20) K/uL PT (9.0-12.0) Seconds INR (0.9-1.1) Sodium 139 (136-145) mmol/L Potassium 3.6 (3.5-5.1) mmol/L Chloride 107 (98-107) mmol/L Carbon Dioxide 23 (21-32) mmol/L Anion Gap 9 (3-11) BUN 9 (6-23) mg/dl Creatinine 0.47 L (0.6-1.2) mg/dl Est Cr Clr Drug Dosing 155.0 ml/min eGFR 112.36 BUN/Creatinine Ratio 19.1 (10-20) Glucose 107 H (70-99(Fasting)) mg/dl POC Glucose 103 H 93 (70-99) mg/dl Estimat Average Glucose 154 mg/dl Hemoglobin A1c 7.0 H (4.5-5.6) % Calcium 8.7 (8.6-10.3) mg/dl Magnesium 2.1 (1.7-2.4) mg/dl Total Bilirubin (0.2-1.0) mg/dl AST (13-39) U/L ALT (7-52) U/L Alkaline Phosphatase (34-104) U/L Troponin I High Sens (0-14) pg/ml Total Protein (6.0-8.3) gm/dl Albumin (3.4-5.0) gm/dl Globulin (2.5-4.0) gm/dl Albumin/Globulin Ratio (0.9-2) Lipase (11-82) U/L Urine Color Urine Appearance (Clear) Urine pH (4.5-7.5) Ur Specific Carver (1.000-1.030) Urine Protein (Negative) Urine Glucose (UA) (Negative) Urine Ketones (Negative) Urine Blood (Negative) Urine Nitrite (Negative) Urine Bilirubin (Negative) Urine Urobilinogen (Negative) Ur Leukocyte Esterase (Negative) Urine WBC (Auto) (0-5) /hpf Urine RBC (Auto) (0-2) /hpf U Hyaline Cast (Auto) (0-2) /lpf U Epithel Cells (Auto) (0-2) /hpf Urine Bacteria (Auto) (None Seen) 09/19/24 Range/Units 11:35 WBC 8.80 (4.8-10.8) K/ul RBC 5.45 H (4.20-5.40) M/uL Hgb 15.7 (12.0-16.0) g/dl Hct 48.1 H (37.0-47.0) % MCV 88.3 (80.0-100.0) fL MCH 28.8 (25.0-34.0) pg MCHC 32.6 (32.0-36.0) g/dL RDW Std Deviation 42.5 (36.4-46.3) fL RDW Coeff of Teja 13.2 (11.5-14.5) % Plt Count 412 H (130-400) K/uL MPV 9.5 (9.4-12.4) fL Immature Gran % (Auto) 0.2 % Neut % (Auto) 72.5 % Lymph % (Auto) 17.0 % [place] % (Auto) 9.5 % Eos % (Auto) 0.3 % Baso % (Auto) 0.5 % Neut # (Auto) 6.37 (1.40-6.50) K/uL Lymph # (Auto) 1.50 (1.20-3.40) K/uL [place] # (Auto) 0.84 H (0.11-0.59) K/uL Eos # (Auto) 0.03 (0.00-0.50) K/uL Baso # (Auto) 0.04 (0.00-0.20) K/uL Immature Gran # (Auto) 0.02 (0.01-0.20) K/uL PT 10.2 (9.0-12.0) Seconds INR 0.9 (0.9-1.1) Sodium 140 (136-145) mmol/L Potassium 3.7 (3.5-5.1) mmol/L Chloride 103 (98-107) mmol/L Carbon Dioxide 28 (21-32) mmol/L Anion Gap 9 (3-11) BUN 17 (6-23) mg/dl Creatinine 0.63 (0.6-1.2) mg/dl Est Cr Clr Drug Dosing 116.4 ml/min eGFR 104.70 BUN/Creatinine Ratio 27.0 H (10-20) Glucose 131 H (70-99(Fasting)) mg/dl POC Glucose (70-99) mg/dl Estimat Average Glucose mg/dl Hemoglobin A1c (4.5-5.6) % Calcium 9.7 (8.6-10.3) mg/dl Magnesium (1.7-2.4) mg/dl Total Bilirubin 1.8 H (0.2-1.0) mg/dl AST 1622 H (13-39) U/L ALT 881 H (7-52) U/L Alkaline Phosphatase 159 H (34-104) U/L Troponin I High Sens 5.1 (0-14) pg/ml Total Protein 7.9 (6.0-8.3) gm/dl Albumin 4.4 (3.4-5.0) gm/dl Globulin 3.5 (2.5-4.0) gm/dl Albumin/Globulin Ratio 1.3 (0.9-2) Lipase 37 (11-82) U/L Urine Color Dark Yellow Urine Appearance Clear (Clear) Urine pH 7.5 (4.5-7.5) Ur Specific Carver 1.041 H (1.000-1.030) Urine Protein Trace H (Negative) Urine Glucose (UA) 2+ H (Negative) Urine Ketones Negative (Negative) Urine Blood Negative (Negative) Urine Nitrite Negative (Negative) Urine Bilirubin Negative (Negative) Urine Urobilinogen Negative (Negative) Ur Leukocyte Esterase Negative (Negative) Urine WBC (Auto) 21-50 H (0-5) /hpf Urine RBC (Auto) 0-2 (0-2) /hpf U Hyaline Cast (Auto) 0-2 (0-2) /lpf U Epithel Cells (Auto) 0-2 (0-2) /hpf Urine Bacteria (Auto) 4+ H (None Seen) Diagnostic Findings Abdomen/Pelvis CT 09/19/24 12:31 CT OF THE ABDOMEN AND PELVIS WITH CONTRAST CLINICAL HISTORY: epigastric pain radiating into back COMPARISON STUDY: Renal ultrasound December 06, 2006. TECHNIQUE: Following IV administration of 120 mL of Optiray, axial images of the abdomen and pelvis were obtained from the lung bases to the proximal femurs. Images were reviewed in the axial, sagittal, and coronal planes. IV contrast was administered without complication. Automated exposure control was utilized for the study. A dose lowering technique was utilized adhering to the principles of ALARA. FINDINGS: The caliber of the abdominal aorta is normal. There is no abdominal aortic dissection. There is mild aortoiliac atherosclerotic plaque. No pneumatosis, free air or portal venous gas is present. Mild biliary ductal dilatation is likely related to cholecystectomy. There is hepatic steatosis. No hepatic lesions are present. There is a 4.2 cm left renal cyst. The spleen, adrenal glands and pancreas are unremarkable. Is no pancreatic ductal dilatation. The stomach is fluid-filled and mildly distended. There is no evidence for a bowel obstruction. The appendix is normal. Caliber and wall thickness of small and large bowel are normal. There is colonic diverticulosis without evidence for acute diverticulitis. Low-attenuation 1.8 cm right adnexal lesion favors an ovarian cyst. IMPRESSION: 1. Normal caliber abdominal aorta. No abdominal aortic dissection. Mild atherosclerotic plaque. 2. No bowel obstruction. No bowel wall thickening. Normal appendix. 3. Mildly distended fluid-filled stomach. 4. Hepatic steatosis. ACT 112: Negative or not required by law. Electronically signed by: Prieto Epps M.D. 09/19/2024 1:35 PM Chest CTA 09/19/24 12:31 CT angio chest dissec wo/w con CT DOSE: 3305.09 mGy.cm HISTORY: 53 years-old Female with epigastric pain into back. Acute chest and upper abdominal pain TECHNIQUE: Multiple CTA images of the chest were obtained with and without the intravenous administration of 120 ml Optiray. Coronal and sagittal MIPS were obtained from the axial data set and were submitted for review. All measurements were obtained according to NASCET criteria. A dose lowering technique was utilized adhering to the principles of ALARA. COMPARISON: CT abdomen and pelvis of same day, chest radiographs 07/19/2007 FINDINGS: CTA: Heart is normal in size. No pericardial effusion. Mild coronary artery calcifications. Mild atherosclerosis of the thoracic aorta without aneurysm or dissection. Patency of the imaged great vessels. No intramural or mediastinal hematoma. Normal pulmonary artery. CT CHEST: Thyroid nodules measure up to 10 mm. Indeterminate 1.1 x 1.4 cm ovoid soft tissue attenuating lesion within the anterior retrosternal mediastinal and image 77 series 10. No pathologic hilar or axillary lymph nodes. No pneumothorax, pleural effusion, airspace consolidation or pulmonary edema. There is a 1.7 cm subpleural lipoma of the lateral left hemithorax on image 113 series 10. There is mild subsegmental dependent bibasilar atelectasis. Central airways are patent. Unremarkable esophagus. Fatty infiltration of the liver. CT abdomen and pelvis is dictated separately. No acute fracture. IMPRESSION: 1. Unremarkable CTA of the chest. No thoracic aortic aneurysm or dissection. 2. No pulmonary emboli. 3. No pleural effusion or airspace consolidation. 4. 1.1 x 1.4 cm nodule within the anterior mediastinum may represent a mildly enlarged lymph node. Three-month follow-up chest CT recommended. ACT 112: Negative or not required by law. The above report was generated using voice recognition software. It may contain grammatical, syntax or spelling errors. Electronically signed by: Jerardo Hernandez M.D. 09/19/2024 1:52 PM Cholangiopancreatography MRI 09/19/24 14:14 MRCP ABDOMEN WITHOUT IV CONTRAST INDICATION: TECHNIQUE: MRI of the abdomen is obtained using multiplanar T1-weighted, T2-weighted, and diffusion-weighted sequences, including dynamic [id number] sequences. Thick slab and 3D MRCP are obtained. INTRAVENOUS CONTRAST: None COMPARISON: None available. FINDINGS: LOWER CHEST: Trace pleural fluids may be present. LIVER: Scattered hepatic cysts or hemangiomas. BILE DUCTS: There is moderate intrahepatic biliary dilation. There is distention of the common bile duct measuring up to 1.0 cm in diameter. There are hypointense materials measuring up to 5 mm in the distal CBD just upstream to the ampulla resulting in filling defects. There is also fairly abrupt tapering appearance of the common bile duct at the site. GALLBLADDER: Not definitively visualized, may be surgically absent or underdistended. SPLEEN: Normal. PANCREAS: Normal. ADRENAL GLANDS: Normal. KIDNEYS: Renal cysts. VISUALIZED BOWEL: No obstruction. VISUALIZED PERITONEUM: No ascites. LYMPH NODES: No lymphadenopathy. RETROPERITONEUM/VESSELS: Normal caliber abdominal aorta. ABDOMINAL WALL: Normal. BONES: Normal marrow signal. IMPRESSION: Suspected obstructive choledocholithiasis in the distal common bile duct at the ampulla resulting in upstream biliary obstruction with moderate intrahepatic biliary dilation. Superimposed additional process such as stricturing may be also present. Recommend further evaluation with ERCP. Electronically signed by Roque Yap 09-19-2024 7:30 PM
--- NOTE | 2024-09-20 12:50 | Hospitalist Progress Note ---
Date of Service September 20, 2024 Assessment & Plan (1) Choledocholithiasis with obstruction: Plan: 53-year-old female with past medical history significant for type 2 diabetes, hypothyroidism, hyperlipidemia, hypertension, calculus of kidney, depression with anxiety, PPD positive presents with epigastric abdominal pain and found to have significant elevated LFTs and choledocholithiasis on MRI scan. Patient says she is having these epigastric pains on and off for about a week. Pain is in epigastric region radiating to the back. And also has some discomfort in the shoulders. Associated with nausea. She could not eat much today. She had a history of similar episode many years ago and had gallbladder removed. Denies any fevers. Normal bowel and bladder movements. Denies any headache or dizziness. No runny nose or sore throat. No cough. No difficulty swallowing. No chest pain or shortness of breath. Currently resting comfortably and hemodynamically stable. With the pain medication , pain is improved. Presented with,Abdominal pain,In epigastric region radiating to the back Elevated LFTs MRCP shows;"Suspected obstructive choledocholithiasis in the distal common bile duct at the ampulla resulting in upstream biliary obstruction with moderate intrahepatic biliary dilation. Superimposed additional process such as stricturing may be also present." ER talked with [facility] and [place] for transfer for ERCP but no ERCP service available until Sunday in all above places as it was thought it was not an emergency. Plan to transfer on Sunday evening to [facility] ER started on Zosyn which will be continued Appreciate GI input and recommendation She remains stable without any abdominal pain, nausea and or vomiting and no fever and/or chills CTA chest okay except for 1.1 into 1.4 cm nodule in the mediastinum and needs 3 months follow-up CT abdomen pelvis okay (2) Abnormal LFTs: (3) Hypertension: (4) Hypothyroidism: Plan Other significant medical conditions remained stable and are as below; Hypertension Continue amlodipine and losartan Will monitor Hyperlipidemia Hold statin for now Hypothyroidism Continue Synthyroid Diabetes Hold home p.o. medications Insulin sliding scale Will check HbA1c levels Will monitor the blood sugars DVT prophylaxis SCDs for now Disposition Close monitor in med/telemetry Full code Admission and Anticipated Discharge Date Admission Date: September 19, 2024 Subjective 09/20/2024 The patient was seen and examined in medical telemetry unit She was admitted with acute epigastric pain that was going to the back and diagnosed to have choledocholithiasis with dilated intrahepatic biliary ducts Denies any more pain since admission does not have any nausea and/or vomiting Plan to send her to [facility] tomorrow afternoon or day after for ERCP Review of Systems Review of Systems: All systems reviewed and are unremarkable except as noted below Physical Exam Physical Exam: Lying in bed without any distress Constitutional: well developed, well nourished and + obese; not ill appearing Eyes: PERRL, conjunctivae normal, anicteric sclerae ENMT: external ear and nose normal, oropharynx normal Neck: trachea midline, no thyromegaly Respiratory: no respiratory distress Auscultation: lungs clear to auscultation bilaterally Cardiovascular: Rate/Rhythm: regular rate and regular rhythm; not tachycardic Heart Sounds: normal S1 and normal S2; no murmur Extremities: no edema Gastrointestinal (Abdomen): Inspection/Auscultation: normal bowel sounds; abdomen not distended Percussion/Palpation: abdomen soft; abdomen nontender Musculoskeletal: No acute arthritis involving any of the joint Neurologic: normal touch/pain/proprioception and moves all extremities; no focal motor deficits Lymphatic: no cervical or axillary lymphadenopathy Results & Data Results & Data Vital Signs (Past 12 Hours) Vital Signs Temp Pulse Pulse Pulse Resp BP Pulse Ox 09/20/24 12:24 36.7 C 79 16 120/80 95 09/20/24 09:00 36.7 C 73 14 120/70 95 09/20/24 07:20 73 O2 Del Method 09/20/24 12:24 Room Air 09/20/24 09:00 Room Air 09/20/24 07:20 Laboratory Results Short CBC 09/20/24 Range/Units 05:38 WBC 5.91 (4.8-10.8) K/ul Hgb 14.1 (12.0-16.0) g/dl Hct 42.6 (37.0-47.0) % Plt Count 348 (130-400) K/uL BMP 09/20/24 05:38 Sodium 139 Potassium 3.6 Chloride 107 Carbon Dioxide 23 BUN 9 Creatinine 0.47 L Glucose 107 H Calcium 8.7 Medications Administered Current Inpatient Medications Acetaminophen (Acetaminophen 325 Mg Tab) 650 mg PO Q4H PRN PRN Reason: Headache or Pain Stop: 10/20/24 08:05 Last Admin: 09/20/24 09:12 Dose: 650 mg Amlodipine Besylate (Amlodipine Besylate 5 Mg Tab) 5 mg PO QAM [facility] Stop: 10/20/24 08:59 Last Admin: 09/20/24 09:13 Dose: 5 mg Colestipol HCl (Colestipol Hcl 1 Gm Tab) 2 gm PO DAILY@1000 SON Stop: 10/20/24 09:59 Last Admin: 09/20/24 10:10 Dose: 2 gm Dextrose (Dextrose 50% 50 Ml Syringe) 25 - 50 ml IV UD PRN; Protocol PRN Reason: Hypoglycemia Protocol Stop: 10/20/24 00:58 Glucagon (Glucagon For Inj 1 Mg Vial) 1 mg SQ UD PRN; Protocol PRN Reason: Hypoglycemia Protocol Stop: 10/20/24 00:58 Glucose (Glucose 40% Gel 15 Gm Tube) 15 - 30 gm PO UD PRN; Protocol PRN Reason: Hypoglycemia Protocol Stop: 10/20/24 00:58 Glucose (Glucose 10 Tab/Tube) 4 - 8 tab PO UD PRN; Protocol PRN Reason: Hypoglycemia Protocol Stop: 10/20/24 00:58 Hydromorphone HCl (Hydromorphone Inj 0.5 Mg/0.5 Ml Syr) 0.25 mg IV Q4H PRN PRN Reason: Moderate Pain (Scale 4, 5, 6) Stop: 10/04/24 00:58 Hydromorphone HCl (Hydromorphone Inj 0.5 Mg/0.5 Ml Syr) 0.5 mg IV Q4H PRN PRN Reason: Severe Pain (Scale 7, 8, 9,10) Stop: 10/04/24 00:58 Sodium Chloride (Nss) 1,000 mls @ 125 mls/hr IV .Q8H [facility] Stop: 09/21/24 00:58 Last Admin: 09/20/24 12:18 Dose: 125 mls/hr Piperacillin Sod/Tazobactam Sod (Zosyn) 4.5 gm in 100 mls @ 25 mls/hr IV Q8H SON; Protocol Stop: 09/30/24 01:59 Last Infusion: 09/20/24 14:15 Dose: Infused Insulin Aspart (Insulin Aspart Per Unit Charge) 0 units SC [facility] Stop: 10/20/24 00:58 Last Admin: 09/20/24 12:16 Dose: Not Given Levothyroxine Sodium (Levothyroxine Sodium 112 Mcg Tablet) 112 mcg PO DAILYBB [facility] Stop: 10/20/24 06:29 Last Admin: 09/20/24 06:25 Dose: 112 mcg Losartan Potassium (Losartan Potassium 50 Mg Tab) 100 mg PO QAM [facility] Stop: 10/20/24 08:59 Last Admin: 09/20/24 09:14 Dose: 100 mg Miscellaneous (Carbohydrates For Hypoglycemia ) 15 - 30 gm PO UD PRN PRN Reason: Hypoglycemia Protocol Stop: 10/20/24 00:58 Nitroglycerin (Nitroglycerin Sl 0.4 Mg/Tab Tab) 0.4 mg SL Q5M PRN PRN Reason: Chest Pain Stop: 10/20/24 00:58 Ondansetron HCl (Ondansetron Inj 2 Mg/Ml 2 Ml Vial) 4 mg IV Q6H PRN PRN Reason: Nausea Stop: 10/20/24 00:58 Pantoprazole Sodium (Pantoprazole 40 Mg Tab) 40 mg PO [facility] Stop: 10/20/24 08:59 Last Admin: 09/20/24 09:13 Dose: 40 mg Venlafaxine HCl (Venlafaxine Hcl Xr 37.5 Mg Capxr) [facility]: 10/20/24 08:59 Last Admin: 09/20/24 09:14 Dose: 37.5 mg
[2024-09-21 04:00] VITALS: BP 126/69; RESP 16
[2024-09-21] MEDS: ONDANSETRON INJ 2 MG/ML 2 ML VIAL IV PRN (06:43)
[2024-09-21 07:57] VITALS: TEMP 98.6; O2SAT 95
--- NOTE | 2024-09-21 09:23 | Hospitalist Progress Note ---
Date of Service September 21, 2024 Assessment & Plan (1) Choledocholithiasis with obstruction: Plan: 53-year-old female with past medical history significant for type 2 diabetes, hypothyroidism, hyperlipidemia, hypertension, calculus of kidney, depression with anxiety, PPD positive presents with epigastric abdominal pain and found to have significant elevated LFTs and choledocholithiasis on MRI scan. Patient says she is having these epigastric pains on and off for about a week. Pain is in epigastric region radiating to the back. And also has some discomfort in the shoulders. Associated with nausea. She could not eat much today. She had a history of similar episode many years ago and had gallbladder removed. Denies any fevers. Normal bowel and bladder movements. Denies any headache or dizziness. No runny nose or sore throat. No cough. No difficulty swallowing. No chest pain or shortness of breath. Currently resting comfortably and hemodynamically stable. With the pain medication , pain is improved. Presented with,Abdominal pain,In epigastric region radiating to the back Elevated LFTs MRCP shows;"Suspected obstructive choledocholithiasis in the distal common bile duct at the ampulla resulting in upstream biliary obstruction with moderate intrahepatic biliary dilation. Superimposed additional process such as stricturing may be also present." ER talked with [facility] and [facility] for transfer for ERCP but no ERCP service available until Sunday in all above places as it was thought it was not an emergency. Plan to transfer on Sunday evening to [facility] ER started on Zosyn which will be continued Appreciate GI input and recommendation She remains stable without any abdominal pain, nausea and or vomiting and no fever and/or chills Remains medically stable without any significant symptoms She will be transferred to [facility] for ERCP tomorrow CTA chest okay except for 1.1 into 1.4 cm nodule in the mediastinum and needs 3 months follow-up CT abdomen pelvis okay (2) Abnormal LFTs: (3) Hypertension: (4) Hypothyroidism: Plan Other significant medical conditions remained stable and are as below; Hypertension Continue amlodipine and losartan Will monitor Hyperlipidemia Hold statin for now Hypothyroidism Continue Synthyroid Diabetes Hold home p.o. medications Insulin sliding scale Will check HbA1c levels Will monitor the blood sugars DVT prophylaxis SCDs for now Disposition Close monitor in med/telemetry Full code Admission and Anticipated Discharge Date Admission Date: September 19, 2024 Subjective 09/20/2024 The patient was seen and examined in medical telemetry unit She was admitted with acute epigastric pain that was going to the back and diagnosed to have choledocholithiasis with dilated intrahepatic biliary ducts Denies any more pain since admission does not have any nausea and/or vomiting Plan to send her to [facility] tomorrow afternoon or day after for ERCP 09/21/2024 The patient was seen and examined in medical telemetry unit She has been stable and denies any symptoms whatsoever No pain, no fever or chills and no nausea and/or vomiting She will be transferred to [facility] for ERCP tomorrow Review of Systems Review of Systems: All systems reviewed and are unremarkable except as noted below Physical Exam Physical Exam: Lying in bed without any distress Constitutional: well developed, well nourished and + obese; not ill appearing Eyes: PERRL, conjunctivae normal, anicteric sclerae ENMT: external ear and nose normal, oropharynx normal Neck: trachea midline, no thyromegaly Respiratory: no respiratory distress Auscultation: lungs clear to auscultation bilaterally Cardiovascular: Rate/Rhythm: regular rate and regular rhythm; not tachycardic Heart Sounds: normal S1 and normal S2; no murmur Extremities: no edema Gastrointestinal (Abdomen): Inspection/Auscultation: normal bowel sounds; ab domen not distended Percussion/Palpation: abdomen soft; abdomen nontender Neurologic: normal touch/pain/proprioception and moves all extremities; no focal motor deficits Lymphatic: no cervical or axillary lymphadenopathy Results & Data Results & Data Vital Signs (Past 12 Hours) Vital Signs Temp Pulse Pulse Pulse Resp BP Pulse Ox 09/21/24 07:52 37.0 C 80 16 95 09/21/24 04:00 36.8 C 75 16 126/69 93 09/20/24 23:52 36.8 C 69 18 133/75 93 09/20/24 21:51 75 O2 Del Method 09/21/24 07:52 Room Air 09/21/24 04:00 Room Air 09/20/24 23:52 Room Air 09/20/24 21:51 Medications Administered Current Inpatient Medications Acetaminophen (Acetaminophen 325 Mg Tab) 650 mg PO Q4H PRN PRN Reason: Headache or Pain Stop: 10/20/24 08:05 Last Admin: 09/20/24 09:12 Dose: 650 mg Amlodipine Besylate (Amlodipine Besylate 5 Mg Tab) 5 mg PO QAM [facility] Stop: 10/20/24 08:59 Last Admin: 09/21/24 09:06 Dose: 5 mg Colestipol HCl (Colestipol Hcl 1 Gm Tab) 2 gm PO DAILY@1000 SON Stop: 10/20/24 09:59 Last Admin: 09/20/24 10:10 Dose: 2 gm Dextrose (Dextrose 50% 50 Ml Syringe) 25 - 50 ml IV UD PRN; Protocol PRN Reason: Hypoglycemia Protocol Stop: 10/20/24 00:58 Glucagon (Glucagon For Inj 1 Mg Vial) 1 mg SQ UD PRN; Protocol PRN Reason: Hypoglycemia Protocol Stop: 10/20/24 00:58 Glucose (Glucose 40% Gel 15 Gm Tube) 15 - 30 gm PO UD PRN; Protocol PRN Reason: Hypoglycemia Protocol Stop: 10/20/24 00:58 Glucose (Glucose 10 Tab/Tube) 4 - 8 tab PO UD PRN; Protocol PRN Reason: Hypoglycemia Protocol Stop: 10/20/24 00:58 Hydromorphone HCl (Hydromorphone Inj 0.5 Mg/0.5 Ml Syr) 0.25 mg IV Q4H PRN PRN Reason: Moderate Pain (Scale 4, 5, 6) Stop: 10/04/24 00:58 Hydromorphone HCl (Hydromorphone Inj 0.5 Mg/0.5 Ml Syr) 0.5 mg IV Q4H PRN PRN Reason: Severe Pain (Scale 7, 8, 9,10) Stop: 10/04/24 00:58 Piperacillin Sod/Tazobactam Sod (Zosyn) 4.5 gm in 100 mls @ 25 mls/hr IV Q8H [facility]; Protocol Stop: 09/30/24 01:59 Last Admin: 09/21/24 09:05 Dose: 25 mls/hr Insulin Aspart (Insulin Aspart Per Unit Charge) 0 units SC [facility] Stop: 10/20/24 00:58 Last Admin: 09/21/24 09:06 Dose: Not Given Levothyroxine Sodium (Levothyroxine Sodium 112 Mcg Tablet) [facility] Stop: 10/20/24 06:29 Last Admin: 09/21/24 06:02 Dose: 112 mcg Losartan Potassium (Losartan Potassium 50 Mg Tab) 100 mg PO [facility] Stop: 10/20/24 08:59 Last Admin: 09/21/24 09:05 Dose: 100 mg Miscellaneous (Carbohydrates For Hypoglycemia ) 15 - 30 gm PO UD PRN PRN Reason: Hypoglycemia Protocol Stop: 10/20/24 00:58 Nitroglycerin (Nitroglycerin Sl 0.4 Mg/Tab Tab) 0.4 mg SL Q5M PRN PRN Reason: Chest Pain Stop: 10/20/24 00:58 Ondansetron HCl (Ondansetron Inj 2 Mg/Ml 2 Ml Vial) 4 mg IV Q6H PRN PRN Reason: Nausea Stop: 10/20/24 00:58 Last Admin: 09/21/24 06:43 Dose: 4 mg Pantoprazole Sodium (Pantoprazole 40 Mg Tab) 40 mg PO [facility] Stop: 10/20/24 08:59 Last Admin: 09/21/24 09:05 Dose: 40 mg Venlafaxine HCl (Venlafaxine Hcl Xr 37.5 Mg Capxr) 37.5 mg PO [facility] Stop: 10/20/24 08:59 Last Admin: 09/21/24 09:06 Dose: 37.5 mg
[2024-09-21 09:38] VITALS: PULSE 73
--- OUTSIDE RECORDS SUMMARY | 2024-09-21 14:00 | External Medical Summary | Summary of Care ---
Author Name Unknown Organization [facility] Address [address] [address] Phone [phone] Care Team Providers Care Rehabilitation Program Coordinator Name Role Phone Renu Coley DO Primary Care Provider Reason for Visit * Reason Comments Outpatient Testing Encounter Details Date Type Department Care Team (Late st Contact Info) Description 09/18/2024 10:50 AM EST Laboratory Laboratory [address] [place] [address] [place] [id number] [facility] [address] [facility] [place] [address] Dyslipidemia, goal LDL below 160; HTN, goal below 140/90; Acquired hypothyroidism; Type 2 diabetes mellitus with hemoglobin A1c goal of less than 7.0% (HCC); Chest pain, unspecified type; Epigastric pain Allergies Active Allergy Reactions Criticality Noted Date Comments Vicodin Nausea/vomiting 06/05/2007 documented as of this encounter (statuses as of 09/18/2024) Medications Glucose Blood (ACCU-CHEK GUIDE) STRPIndications: Type 2 diabetes mellitus with hemoglobin A1c goal of less than 7.0% (HCC) Use as directed 4 times a day as needed for Hyperglycemia (high sugar). dx code E11.9 300 Strip 3 08/14/20 19 Active Accu-Chek FastClix LancetsIndicatio ns:Type 2 diabetes mellitus with hemoglobin A1c goal of less than 7.0% (HCC) Use as directed 4 times a day as needed for Hyperglycemia (high sugar). Use up to four times a day as directed for DM, dx code E11.9 300 Each 3 09/05/20 21 Active ProAir HFA 108 (90 Base) MCG/ACT Inhalation Aerosol Solution Inhale 2 Puffs by mouth in the morning and 2 Puffs at noon and 2 Puffs in the evening and 2 Puffs before bedtime. 18 g 1 02/08/20 23 Active Ibuprofen 600 MG Oral Tablet (Motrin) Take 1 Tablet by mouth in the morning and 1 Tablet at noon and 1 Tablet before bedtime. with food for pain. 30 Tablet 1 06/22/20 23 Active Jardiance 25 MG Oral Tablet (Empagliflozin)I ndications:Type 2 diabetes mellitus with hemoglobin A1c goal of less than 7.0% (HCC) TAKE ONE TABLET BY MOUTH EVERY MORNING 90 Tablet 1 11/09/19 24 Active Triamcinolone Acetonide 0.5 % External Cream (Aristocort) Apply topically to affected area 2 times a day. To affected area. 60 g 5 02/08/20 24 Active Colestipol HCl 1 GM Oral Tablet (Colestid)Indica tions:History of laparoscopic cholecystectomy, Chronic diarrhea Take 1 Tablet by mouth in the morning. 180 Tablet 2 02/27/20 24 Active Atorvastatin Calcium 40 MG Oral Tablet (Lipitor)Indicat ions:Dyslipidemi a TAKE 1 TABLET BY MOUTH EVERY MORNING 90 Tablet 07/22/20 24 Active amLODIPine Besylate 5 MG Oral Tablet (Norvasc)Indicat ions:HTN, goal below 140/90 TAKE 1 TABLET BY MOUTH EVERY MORNING 90 Tablet 07/22/20 24 Active Losartan Potassium 100 MG Oral Tablet (Cozaar)Indicati ons:HTN, goal below 140/90 TAKE 1 TABLET BY MOUTH EVERY MORNING 90 Tablet 07/22/20 24 Active Levothyroxine Sodium 112 MCG Oral Tablet (Levoxyl)Indicat ions:Hypothyroid ism TAKE 1 TABLET BY MOUTH EVERY MORNING 90 Tablet 07/22/20 24 Active metFORMIN HCl 500 MG Oral Tablet (Glucophage)Lucia cations:Type 2 diabetes mellitus with hemoglobin A1c goal of less than 7.0% (HCC) TAKE 1 TABLET BY MOUTH EVERY MORNING 90 Tablet 07/22/20 24 Active Ozempic (1 MG/DOSE) 4 MG/3ML Subcutaneous Solution Pen-injector (Semaglutide (1 MG/DOSE)) INJECT 1MG SUBCUTANEOUSLY (UNDER THE SKIN) EVERY WEEK 3 mL 09/12/20 24 Active Omeprazole 20 MG Oral Capsule Delayed Release (PriLOSEC) Take 1 Capsule by mouth in the morning. 1 hour before the first meal of the day. 30 Capsule 5 09/18/20 24 Active Venlafaxine HCl 25 MG Oral Tablet (Effexor) Take 1 Tablet by mouth in the morning. For 12 days, then 0.5 tabs for 4 days. 14 Tablet 09/18/20 24 Active documented as of this encounter (statuses as of 09/18/2024) Active Problems Problem Noted Date Diagnosed Date Type 2 diabetes mellitus wit h hemoglobin A1c goal of less than 7.0% 04/25/2017 HTN, goal below 140/90 04/25/2017 Depression with anxiety 05/12/2015 PPD positive 10/28/2010 Overview (10/28/2010): INH treated for 9 months Started 01/21/10 Finished 10/30/10 Dyslipidemia, goal LDL below 160 10/28/2010 Hypothyroidism 12/12/2005 Overview (12/12/2005): 2004 Calculus of kidney documented as of this encounter (statuses as of 09/18/2024) Resolved Problems Problem Noted Date Diagnosed Date Resolved Date Hyperglycemia 04/23/2017 07/17/2019 Tuberculosis exposure 01/25/20102010 Overview (01/25/2010): Tuberculosis infection, no disease PPD positive---chest imaging normal. Started on isoniazid 300 mg daily 9 month treatment. Start date 01/21/2010 Dyslipidemia, goal to be determined 09/28/2009 10/28/2010 Overview (09/28/2009): Per Lipid Taxonomy. Major depressive disorder 02/19/2008 Overview (08/07/2017): ICD-10 update of inactive term Dyslipidemia, goal LDL below 160 01/02/2008 09/28/2009 Overview (09/28/2009): Per Lipid Taxonomy. ADVANCE DIRECTIVE INFORMATION 10/31/2005 04/23/2017 BACKACHE NOS 10/31/2005 04/23/2017 Overview (10/31/2005): l 5 herniated disc documented as of this encounter (statuses as of 09/18/2024) Immunizations Name Administration Dates Next Due COVID-19 mRNA, LNP-s, No Pre serve, 2-Dose Series (Pfizer) 08/16/2021,02/02/2021,01/12/2021 Covid-19, Mrna, Lnp-s, Pf, B ivalent, 30 Mcg, IM, 12 yrs and above (Pfizer) 08/05/2022 PPD 12/15/2009,10/04/2009,09/23/2008 Pneumococcal Conjugate Vacci ne, 20-valent ([id number]) 08/25/2022 Pneumococcal Polysaccharide PPV23 (Pneumovax) 12/15/2009 TD, Preservative Free 12/01/2020 TDAP, Age 7 and older, IM (Adacel) 06/22/2008 documented as of this encounter Social History Tobacco Use Types Packs/Day Years Used Date Smoking Tobacco: Former Cigarettes Q uit: 11/16/1990 Smokeless Tobacco: Never Alcohol Use Standard Drinks/Week Comments No 0 (1 standard drink = 0.6 oz pur e alcohol) PHQ-2 Answer Date Recorded PHQ-2 Score 0 01/15/2020 Utilities Answer Date Recorded Do you have trouble paying y our heating, water, or electric bill? (Adult - for ages 18 years and over) Not on file 04/01/2024 Is your family able to pay t he heat, water, or electric bill? (Household - for ages 0-17 years) Not on file 04/01/2024 Does your family have access to good internet? (Household - for ages 0-17 years) Not on file 04/01/2024 Social Connections Answer Date Recorded How often do you feel lonely or isolated from those around you? (Adult - for ages 18 years and over) Not on file 04/01/2024 Comments No Sex and Gender Information Value Date Recorded Sex Assigned at Female 07/17/2019 7:45 AM EDT Legal Sex Female 6:23 AM EST Gender Identity Female 07/17/2019 7:45 AM EDT Sexual Orientation Straight 07/17/2019 7: 45 AM EDT Occupation Industry Job Start Date Job End Date homemaker Not on file Not on file Not on file Travel History Travel Start Travel End Mary 08/19/2024 08/28/2024 documented as of this encounter Plan of Treatment Upcoming Encounters Date Type Department Care Team (Late st Contact Info) Description 10/03/2024 10:30 AM EST Imaging Radiology [facility] [address] [facility] [address] [place] [address] 10/03/2024 12:30 PM EST Imaging Radiology [facility] [address] [place] [address] 03/19/2025 11:15 AM EDT Office Visit Dermatology [facility] [address] [place] [address] Maxi Vigil MD [address] [place] [address] Pending Results Name Type Priority Associated Diagnoses Date /Time COMPREHENSIVE METABOLIC PANEL Lab Routine Dyslipidemia, goal LDL below 160 HTN, goal below 140/90 09/18/2024 10:44 AM EST LIPID PANEL WITH DIRECT LDL IF TG IS HIGH Lab Routine Dyslipidemia, goal LDL below 160 09/18/2024 10:44 AM EST TSH WITH FREE T4 IF INDICATED Lab Routine Acquired hypothyroidism 09/18/2024 10:44 AM EST HEMOGLOBIN A1C Lab Routine Type 2 diabetes mellitus with hemoglobin A1c goal of less than 7.0% (HCC) 09/18/2024 10:44 AM EST LIPASE Lab Routine Epigastric pain 09/18/2024 10:44 AM EST Health Maintenance Due Date Last Done Comments Hepatitis B Vaccine (1 of 3 - 19+ 3-dose series) 1987 HPV/Co-Test 1998 Colonoscopy 2013 Fecal Occult Blood Test 2013 Sigmoidoscopy 2013 Zoster Vaccines (1 of 2) 2018 Depression Monitoring 01/05/2021 01/06/2020 GFR 04/26/2024 04/26/2023, 0 05/2022, 08/31/2021, Additional history exists TSH 04/26/2024 04/26/2023, 110 05/2022, 08/31/2021, Additional history exists COVID-19 Vaccine ( season) 2024 08/05/2022, 08/16/2021, 02/02/2021, Additional history exists Influenza Vaccine (FLU shot) (#1) 2024 HbA1c 08/30/2024 02/28/2024, 04/14, 08/22/2022, Additional history exists Mammogram 01/06/2025 01/07/2024, 12/14, 01/04/2022, Additional history exists Cervical Cancer Screening 02/21/2025 Pap Smear 02/21/2025 02/21/2022, 03/15, 02/22/2015, Additional history exists Diabetic Foot Exam 02/26/2025 02/27/2024, 1 10/24/2021, 03/31/2021, Additional history exists Albumin/Creatinine Ratio 02/27/2025 024, 08/22/2022, 08/31/2021, Additional history exists B-12 02/27/2025 02/28/2024, 1105/2022, 05/31/2020, Additional history exists Diabetic Eye Exam 02/27/2025 02/28/2024, , 06/23/2020, Additional history exists Cologuard 09/06/2025 09/06/2022, 08/15, 09/01/2022, Additional history exists Colorectal Cancer Screening 09/06/2025 Lipid Panel 04/26/2028 04/26/2023, 1105/2022, 08/31/2021, Additional history exists DTap/Tdap Vaccines (3 - Td or Tdap) 12/01/2030 12/01/2020, 06/22/2008 Pneumococcal Vaccine: Pediatrics (0 to 5 Years) and At-Risk Patients (6 to 64 Years) Completed 08/25/2022, 12/15/2009 HIV Screening Discontinued HPV (Gardasil) Vaccine Aged Out No lo nger eligible based on patient's age to complete this topic Hepatitis C Screening Discontinued MENINGOCOCCAL (MENACTRA/MENVEO) Aged Out No longer eligible based on patient's age to complete this topic documented as of this encounter Medical Devices Not on filedocumented as of this encounter Procedures Procedure Name Priority Date/Time Associated Diagnosis Comments DIFFERENTIAL, AUTOMATED Routine 09/18/2024 10:44 AM EST Chest pain, unspecified type CBC Routine 09/18/2024 10:44 AM EST Chest pain, unspecified type CBC Routine 09/18/2024 10:44 AM EST Chest pain, unspecified type documented in this encounter Results * DIFFERENTIAL, AUTOMATED (09/18/2024 10:44 AM EST) WBC 8.96 4.00 - 10.80 K/uL 09/18/2024 10:54 AM EST [facility] Neutrophils % 65.0 40.0 - 75.0 % 09/18/2024 10:54 AM EST [facility] Lymphocytes % 26.7 18.0 - 42.0 % 09/18/2024 10:54 AM EST [facility] Monocytes % 6.9 1.0 - 11.0 % 09/18/2024 10:54 AM EST [facility]02 Eosinophils % 1.2 0.0 - 6.0 % 09/18/2024 10:54 AM EST [facility] Basophils % 0.2 0.0 - 2.0 % 09/18/2024 10:54 AM EST [facility] Absolute Neutrophils 5.82 1.80 - 7.70 K/uL 09/18/2024 10:54 AM EST [facility] Absolute Lymphocytes 2.39 1.00 - 4.80 K/ul 09/18/2024 10:54 AM EST [facility]02 Absolute Monocytes 0.62 0.00 - 1.10 K/uL 09/18/2024 10:54 AM EST [facility]02 Absolute Eosinophils 0.11 0.00 - 0.70 K/uL 09/18/2024 10:54 AM EST [facility]02 Absolute Basophils 0.02 0.00 - 0.20 K/uL 09/18/2024 10:54 AM EST [facility] Blood Venous blood specimen / Unknown Venipuncture / Unknown 09/18/2024 10:44 AM EST 09/18/2024 10:44 AM EST Renu Wayneberly Vianca DO LAB BLOOD ORDERABLES Fi nal Result [facility] [address]- [address] [place] [id number] * (ABNORMAL) CBC (09/18/2024 10:44 AM EST) WBC 8.96 4.00 - 10.80 K/uL 09/18/2024 10:54 AM [facility] 56- RBC 5.21 3.85 - 5.15 M/uL 09/18/2024 10:54 AM [facility] 56- HGB 15.3 12.0 - 15.3 g/dL 09/18/2024 10:54 AM [facility] 56- HCT 47.0(H) 36.0 - 45.2 % 09/18/2024 10:54 AM [facility] 56- MCV 90.2 81.5 - 97.5 fL 09/18/2024 10:54 AM [facility] 56- MCH 29.4 27.0 - 34.0 pg 09/18/2024 10:54 AM [facility] 56- MCHC 32.6 32.0 - 36.0 g/dL 09/18/2024 10:54 AM [facility] 56- RDW 13.7 11.5 - 15.5 % 09/18/2024 10:54 AM [facility] 56-02 PLT 384 140 - 400 K/uL 09/18/2024 10:54 AM [facility] 56-02 MPV 9.3 6.6 - 11.1 fL 09/18/2024 10:54 AM [facility] 56-02 Blood Venous blood specimen / Unknown Venipuncture / Unknown 09/18/2024 10:44 AM EST 09/18/2024 10:44 AM EST Renu Cloey DO LAB BLOOD ORDERABLES Fi nal Result [facility] [facility] [place] [place] [address] documented in this encounter Visit Diagnoses Diagnosis Dyslipidemia, goal LDL below 160 Other and unspecified hyperlipidemia HTN, goal below 140/90 Unspecified essential hypertension Acquired hypothyroidism Unspecified hypothyroidism Type 2 diabetes mellitus with hemoglobin A1c goal of less than 7.0% (HCC) Chest pain, unspecified type Epigastric pain Abdominal pain, epigastric documented in this encounter Care Teams Rehabilitation Program Coordinator Relationship Specialty Start Date End Date Renu Coley DO [address] [facility] [place] [address] PCP - General Family Medicine 08/05/21 documented as of this encounter
--- OUTSIDE RECORDS SUMMARY | 2024-09-21 14:00 | External Medical Summary ---
Author Name Unknown Address Unknown Organization [id number]:[facility] [place] [address] Laboratory Report Ordering Provider Test Date Status BESS ARNETT 09/18/2024 10:44:16 Final Observation Date Value Abnormality Reference (Units ) Status WBC, Total 09/18/2024 10:44:16 8.96 4.00-10.8 0 (K/uL) Final RBC 09/18/2024 10:44:16 5.21 3.85-5.15 (M/uL) Final Hemoglobin 09/18/2024 10:44:16 15.3 12.0-15.3 (g/dL) Final HCT 09/18/2024 10:44:16 47.0 Above high normal 36 .0-45.2 (%) Final MCV 09/18/2024 10:44:16 90.2 81.5-97.5 (fL) Final MCH 09/18/2024 10:44:16 29.4 27.0-34.0 (pg) Final MCHC 09/18/2024 10:44:16 32.6 32.0-36.0 (g/dL) Final RDW 09/18/2024 10:44:16 13.7 11.5-15.5 (%) Final Platelets 09/18/2024 10:44:16 384 140-400 (K /uL) Final MPV 09/18/2024 10:44:16 9.3 6.6-11.1 ( fL) Final Performing Location [facility] [place] [address]
--- OUTSIDE RECORDS SUMMARY | 2024-09-21 14:00 | External Medical Summary ---
Author Name Unknown Address Unknown Organization [id number]:[facility] - [address] [facility] [address] Laboratory Report Ordering Provider Test Date Status MARCIE PARDO 09/18/2024 10:44:16 Final Observation Date Value Abnormality Reference (Units ) Status TSH 09/18/2024 10:44:16 0.91 0.27-4.20 (uIU/mL) Final Performing Location [facility] - [address] [facility] [address]
--- OUTSIDE RECORDS SUMMARY | 2024-09-21 14:00 | External Medical Summary ---
Author Name Unknown Address Unknown Organization [id number]:[facility] [place] [address] Laboratory Report Ordering Provider Test Date Status BESS ARNETT 09/18/2024 10:44:16 Final Observation Date Value Abnormality Reference (Units ) Status SYNC LEUKOCYTES IN BLOOD BY AUTOMATED COUNT 09/18/2024 10:44:16 8.96 4.00-10.80 (K/uL) Final Segs 09/18/2024 10:44:16 65.0 40.0-75.0 (%) Final Lymphs % 09/18/2024 10:44:16 26.7 18.0-42.0 (%) Final Monos 09/18/2024 10:44:16 6.9 1.0-11.0 (%) Final Eosinophils 09/18/2024 10:44:16 1.2 0.0-6.0 (%) Final Basos 09/18/2024 10:44:16 0.2 0.0-2.0 (%) Final Absolute Segs 09/18/2024 10:44:16 5.82 1.80-7.70 (K/uL) Final Lymphs, absolute 09/18/2024 10:44:16 2.39 1.00-4.80 (K/ul) Final Monos, Abs 09/18/2024 10:44:16 0.62 0.00-1.10 (K/uL) Final Eos, Abs 09/18/2024 10:44:16 0.11 0.00-0.70 (K/uL) Final Basos, Abs 09/18/2024 10:44:16 0.02 0.00-0.20 (K/uL) Final Performing Location [facility] [place] [address]
--- OUTSIDE RECORDS SUMMARY | 2024-09-21 14:00 | External Medical Summary ---
Author Name Unknown Address Unknown Organization [id number]:[facility] - [address] [place] [address] Laboratory Report Ordering Provider Test Date Status SIENA DRAKE 09/18/2024 10:44:16 Final Observation Date Value Abnormality Reference (Units ) Status HbA1C 09/18/2024 10:44:16 7.1 Above high normal 4. 0-5.6 (%) Final The use of HbA1c to monitor glycemic status is based on normal hemoglobin and HbA composition. This test should not be used in patients with abnormal hemoglobin that affects the half life of the red blood cell or the in vivo glycation rates. Glucose, estimated average 09/18/2024 10:44:16 157 Above high normal <126 (mg/dL) Serafin adler Performing Location [facility] - [address] [place] [address]
--- OUTSIDE RECORDS SUMMARY | 2024-09-21 14:01 | External Medical Summary ---
Author Name Unknown Address Unknown Organization [id number]:[facility] [place] [address] [facility] [place] [address] Laboratory Report Ordering Provider Test Date Status MARCIE PARDO 09/18/2024 10:44:16 Final Observation Date Value Abnormality Reference (Units ) Status Triglyceride 09/18/2024 10:44:16 171 <=174 ( mg/dL) Final Triglyceride Reference Range s (mg/dL):
<150 Acceptable
150-174 Borderline high
175-499 High
>=500 Very high Cholesterol 09/18/2024 10:44:16 181 <200 (mg /dL) Final Total Cholesterol Reference Ranges (mg/dL):
<200 Desirable
200-239 Borderline high
>=240 High HDL 09/18/2024 10:44:16 62 >49 (mg/dL ) Final HDL Cholesterol Reference Ra nges (mg/dL):
>=60 High (Desirable)
<50 Low (Undesirable) For Females
<40 Low (Undesirable) For Males NON-HDL CHOLESTEROL 09/18/2024 10:44:16 119 <=159 (mg/dL) Final Non-HDL Cholesterol Referenc e Range (mg/dL):
<100 Target level for high risk ASCVD patient
<130 Optimal for general population
130-159 Near optimal for general population
160-189 Borderline High
190-219 High
>=220 Very High LDL, (calculated) 09/18/2024 10:44:16 85 <= 129 (mg/dL) Final LDL Cholesterol Reference Ra nges (mg/dL):
<70 Target level for high risk ASCVD patient
<100 Optimal for general population
100-129 Near optimal for general population
130-159 Borderline high
160-189 High
>=190 Very high Performing Location [facility] [place] [address] [facility] [address]
--- OUTSIDE RECORDS SUMMARY | 2024-09-21 14:01 | External Medical Summary | Summary of Care ---
Author Name Unknown Organization [facility] Address [address] [facility] [place] [address] Phone [phone] Care Team Providers Care Pig Caster Name Role Phone Hope Coley DO Primary Care Provider Reason for Visit * Reason Comments eRx-Medication Refill Encounter Details Date Type Department Care Team (Late st Contact Info) Description 07/20/2024 Refill Family Practice [facility] [address] [facility] [place] [address] Hope Coley DO [address] [facility] [place] [address] Dyslipidemia; HTN, goal below 140/90; HYPOTHYROIDISM NOS; Type 2 diabetes mellitus with hemoglobin A1c goal of less than 7.0% (HCC) Allergies Active Allergy Reactions Criticality Noted Date Comments Vicodin Nausea/vomiting 06/05/2007 documented as of this encounter (statuses as of 07/24/2024) Medications Medication Sig Dispensed Refills Start Date End Date Status Glucose Blood (ACCU-CHEK GUIDE) STRPIndications:T ype 2 diabetes mellitus with hemoglobin A1c goal of less than 7.0% (HCC) Use as directed 4 times a day as needed for Hyperglycemia (high sugar). dx code E11.9 300 Strip 3 9 Active Accu-Chek FastClix LancetsIndication s:Type 2 diabetes mellitus with hemoglobin A1c goal of less than 7.0% (HCC) Use as directed 4 times a day as needed for Hyperglycemia (high sugar). Use up to four times a day as directed for DM, dx code E11.9 300 Each 3 1 Active ProAir HFA 108 (90 Base) MCG/ACT Inhalation Aerosol Solution Inhale 2 Puffs by mouth in the morning and 2 Puffs at noon and 2 Puffs in the evening and 2 Puffs before bedtime. 18 g 1 3 Active Ibuprofen 600 MG Oral Tablet (Motrin) Take 1 Tablet by mouth in the morning and 1 Tablet at noon and 1 Tablet before bedtime. with food for pain. 30 Tablet 1 3 Active Ozempic (1 MG/DOSE) 4 MG/3ML Subcutaneous Solution Pen-injector (Semaglutide (1 MG/DOSE)) INJECT 1MG UNDER THE SKIN ONCE A WEEK 3 mL 11 3 Active Jardiance 25 MG Oral Tablet (Empagliflozin)In dications:Type 2 diabetes mellitus with hemoglobin A1c goal of less than 7.0% ([facility]) TAKE ONE TABLET BY MOUTH EVERY MORNING 90 Tablet 1 4 Active Triamcinolone Acetonide 0.5 % External Cream (Aristocort) Apply topically to affected area 2 times a day. To affected area. 60 g 5 4 Active Colestipol HCl 1 GM Oral Tablet (Colestid)Indicat ions:History of laparoscopic cholecystectomy,C hronic diarrhea Take 1 Tablet by mouth in the morning. 180 Tablet 2 4 Active Venlafaxine HCl ER 37.5 MG Oral Capsule Extended Release 24 Hour (Effexor XR) TAKE 1 CAPSULE BY MOUTH EVERY MORNING. DO NOT CUT, CRUSH OR CHEW THE CAPSULE 30 Capsule 2 4 Active Atorvastatin Calcium 40 MG Oral Tablet (Lipitor)Indicati ons:Dyslipidemia TAKE 1 TABLET BY MOUTH EVERY MORNING 90 Tablet 4 Active amLODIPine Besylate 5 MG Oral Tablet (Norvasc)Indicati ons:HTN, goal below 140/90 TAKE 1 TABLET BY MOUTH EVERY MORNING 90 Tablet 4 Active Losartan Potassium 100 MG Oral Tablet (Cozaar)Indicatio ns:HTN, goal below 140/90 TAKE 1 TABLET BY MOUTH EVERY MORNING 90 Tablet 4 Active Levothyroxine Sodium 112 MCG Oral Tablet (Levoxyl)Indicati ons:Hypothyroidis m TAKE 1 TABLET BY MOUTH EVERY MORNING 90 Tablet 4 Active metFORMIN HCl 500 MG Oral Tablet (Glucophage)Indic ations:Type 2 diabetes mellitus with hemoglobin A1c goal of less than 7.0% (HCC) TAKE 1 TABLET BY MOUTH EVERY MORNING 90 Tablet 4 Active metFORMIN HCl 500 MG Oral Tablet (Glucophage)Indic ations:Type 2 diabetes mellitus with hemoglobin A1c goal of less than 7.0% (HCC) TAKE ONE TABLET BY MOUTH EVERY MORNING 180 Tablet 1 3 07/22/20 24 Discontinued amLODIPine Besylate 5 MG Oral Tablet (Norvasc)Indicati ons:HTN, goal below 140/90 TAKE ONE TABLET BY MOUTH EVERY DAY IN THE MORNING 90 Tablet 2 3 07/22/20 24 Discontinued Losartan Potassium 100 MG Oral Tablet (Cozaar)Indicatio ns:HTN, goal below 140/90 TAKE ONE TABLET BY MOUTH EVERY MORNING 90 Tablet 2 3 07/22/20 24 Discontinued Levothyroxine Sodium 112 MCG Oral Tablet (Levoxyl)Indicati ons:Hypothyroidis m TAKE ONE TABLET BY MOUTH EVERY DAY IN THE MORNING 90 Tablet 2 3 07/22/20 24 Discontinued Atorvastatin Calcium 40 MG Oral Tablet (Lipitor)Indicati ons:Dyslipidemia Take 1 Tablet by mouth in the morning. In the morning.. 90 Tablet 1 4 07/22/20 24 Discontinued documented as of this encounter (statuses as of 07/24/2024) Active Problems Problem Noted Date Diagnosed Date Type 2 diabetes mellitus wit h hemoglobin A1c goal of less than 7.0% 04/25/2017 HTN, goal below 140/90 04/25/2017 Depression with anxiety 05/12/2015 PPD positive 10/28/2010 Overview: INH treated for 9 months Started 01/21/10 Finished 10/30/10 Dyslipidemia, goal LDL below 160 10/28/2010 Hypothyroidism 12/12/2005 Overview: 2004 Calculus of kidney documented as of this encounter (statuses as of 07/24/2024) Resolved Problems Problem Noted Date Diagnosed Date Resolved Date Hyperglycemia 04/23/2017 07/17/2019 Tuberculosis exposure 01/25/20102010 Overview: Tuberculosis infection, no disease PPD positive---chest imaging normal. Started on isoniazid 300 mg daily 9 month treatment. Start date 01/21/2010 Dyslipidemia, goal to be determined 09/28/2009 10/28/2010 Overview: Per Lipid Taxonomy. Major depressive disorder 02/19/2008 Overview: ICD-10 update of inactive term Dyslipidemia, goal LDL below 160 01/02/2008 09/28/2009 Overview: Per Lipid Taxonomy. ADVANCE DIRECTIVE INFORMATION 10/31/2005 04/23/2017 BACKACHE NOS 10/31/2005 04/23/2017 Overview: l 5 herniated disc documented as of this encounter (statuses as of 07/24/2024) Immunizations Name Administration Dates Next Due COVID-19 mRNA, LNP-s, No Pre serve, 2-Dose Series ([email or web address]) 08/16/2021,02/02/2021,01/12/2021 Covid-19, Mrna, Lnp-s, Pf, B ivalent, 30 Mcg, IM, 12 yrs and above (Pfizer) 08/05/2022 PPD 12/15/2009,10/04/2009,09/23/2008 Pneumococcal Conjugate Vacci ne, 20-valent ([email or web address]) 08/25/2022 Pneumococcal Polysaccharide PPV23 (Pneumovax) 12/15/2009 TD, [...] years and over) Not on file 04/01/2024 Sex and Gender Information Value Date Recorded Sex Assigned at Female 07/17/2019 7:45 AM EDT Gender Identity Female 07/17/2019 7:45 AM EDT Sexual Orientation Straight 07/17/2019 7: 45 AM EDT Job Start Date Occupation Industry Not on file Not on file Not on file documented as of this encounter Miscellaneous Notes * Telephone Encounter - Jayy Anderson - 07/24/2024 8:11 PM EDT Received message from [facility] regarding patient needing an appointment and labs. Patient was notified. Successfully contacted patient and provided [facility] message. * Telephone Encounter - Krysat Marrufo [facility] - 07/22/2024 6:24 AM EDTSigned Prescriptions: Disp Refills Atorvastatin Calcium 40 MG Oral Tablet (Li*90 Tab*0 Sig: TAKE 1 TABLET BY MOUTH EVERY MORNING Authorizing Provider: HOPE COLEY Ordering User: KRYSTA MARRUFO amLODIPine Besylate 5 MG Oral Tablet (Norv*90 Tab*0 Sig: TAKE 1 TABLET BY MOUTH EVERY MORNING Authorizing Provider: HOPE COLYE Ordering User: NIMISHA MARRUFO Losartan Potassium 100 MG Oral Tablet (Coz*90 Tab*0 Sig: TAKE 1 TABLET BY MOUTH EVERY MORNING Authorizing Provider: HOPE COLEY Ordering User: KRYSTA MARRFUO Levothyroxine Sodium 112 MCG Oral Tablet (*90 Tab*0 Sig: TAKE 1 TABLET BY MOUTH EVERY MORNING Authorizing Provider: HOPE COLEY Ordering User: KRYSTA MARRUFO metFORMIN HCl 500 MG Oral Tablet (G lucopha*90 Tab*0 Sig: TAKE 1 TABLET BY MOUTH EVERY MORNING Authorizing Provider: HOPE COLEY Ordering User: KRYSTA MARRUFO * Telephone Encounter - Krysta Marrufo RPh - 07/22/2024 6:23 AM EDT 2nd attempt Provided 90 days supply with 0 refill. Per refill protocol patient should have routine on file within past year. Reviewed AMP report, Care Gaps/Health Maintenance, medications list, and for any routine labs typically ordered for this patient. Lab orders placed. Please contact patient to schedule office visit with PRIMARY CARE and advise of labs ordered for blood draw. Recommend patient to fast if able for labs. Patient may still have water and regular medications. Advise to obtain labs before requesting the next refill. Last Visit: 06/22/2023 (in office), Visit date not found (telemedicine) Next Visit: Visit date not found Thank you, Krysta Marrufo, PharmD. Clinical Pharmacist [facility] 07/22/2024, 6:23 AM documented in this encounter Plan of Treatment Scheduled Orders Name Type Priority Associated Diagnoses Orde r Schedule HEMOGLOBIN A1C Lab Routine Type 2 diabetes mellitus with hemoglobin A1c goal of less than 7.0% (HCC) Expected: 07/22/2024 (Approximate), Expires: 07/22/2025 Health Maintenance Due Date Last Done Comments Hepatitis B Vaccine (1 of 3 - 19+ 3-dose series) 1987 HPV/Co-Test 1998 Colonoscopy 2013 Fecal Occult Blood Test 2013 Sigmoidoscopy 2013 Zoster Vaccines (1 of 2) 2018 Depression Monitoring 01/05/2021 01/06/2020 GFR 04/26/2024 04/26/2023, 11/0 05/2022, 08/31/2021, Additional history exists TSH 04/26/2024 04/26/2023, 05/2022, 08/31/2021, Additional history exists COVID-19 Vaccine [...] 08/31/2021, Additional history exists B-12 02/27/2025 02/28/2024, 05/2022, 05/31/2020, Additional history exists Diabetic Eye Exam 02/27/2025 02/28/2024, , 06/23/2020, Additional history exists Cologuard 09/06/2025 09/06/2022, 08/15, 09/01/2022, Additional history exists Colorectal Cancer Screening 09/06/2025 Lipid Panel 04/26/2028 04/26/2023, 05/2022, 08/31/2021, Additional history exists DTap/Tdap Vaccines (3 [...] Not on filedocumented as of this encounter Visit Diagnoses Diagnosis Dyslipidemia Other and unspecified hyperlipidemia HTN, goal below 140/90 Unspecified essential hypertension HYPOTHYROIDISM NOS Unspecified hypothyroidism Type 2 diabetes mellitus with hemoglobin A1c goal of less than 7.0% (HCC) documented in this encounter Care Teams Pig Caster Relationship Specialty Start Date End Date Hope Coley DO [address] [place] [address] PCP - General Family Medicine 08/05/21 documented as of this encounter
--- OUTSIDE RECORDS SUMMARY | 2024-09-21 14:01 | External Medical Summary | Summary of Care ---
Author Name Unknown Organization [facility] Address [address] [place] [address] Phone [phone] Care Team Providers Care Technical Support Associate Name Role Phone Vianca Sears Cecilia PINK Primary Care Provider Reason for Visit * Reason Comments NEW PATIENT New pt ref by Dr Qiu for abd pain and elevated LFT's. Pt states abd pain has subsided and she thinks it was an episode of heartburn. * Evaluate & Treat - Unlimited Visits (Within 10 days (routine)) - Pending Review Specialty Diagnoses / Procedures Referred By Cornelius loving Referred To Contact Gastroenterology Diagnoses Abnormal LFTs History of laparoscopic cholecystectomy Epigastric pain Silke Qiu MD [address] [place] [address] Referral ID Status Reason Start Date Expiration Date Visits Requested Visits Authorized [id number] Pending Review Specialty Services Required 03/14/[phone] Encounter Details Date Type Department Care Team (Late st Contact Info) Description 04/11/2024 3:00 PM EDT Office Visit [facility]astroenter[facility], [facility] [address] [facility] [address] Leona Rae CRNP [address] [place] [address] Elevated LFTs*; Epigastric pain Allergies Active Allergy Reactions Criticality Noted Date Comments Vicodin Nausea/vomiting 06/05/2007 documented as of this encounter (statuses as of 04/11/2024) Medications Medication Sig Dispensed Refills Start Date End Date Status Glucose Blood (ACCU-CHEK GUIDE) STRPIndications:Ty pe 2 diabetes mellitus with hemoglobin A1c goal of less than 7.0% (HCC) Use as directed 4 times a day as needed for Hyperglycemia (high sugar). dx code E11.9 300 Strip 3 08/14/2019 Active Accu-Chek FastClix LancetsIndications :Type 2 diabetes mellitus with hemoglobin A1c goal of less than 7.0% (HCC) Use as directed 4 times a day as needed for Hyperglycemia (high sugar). Use up to four times a day as directed for DM, dx code E11.9 300 Each 3 09/05/2021 Active ProAir HFA 108 (90 Base) MCG/ACT Inhalation Aerosol Solution Inhale 2 Puffs by mouth in the morning and 2 Puffs at noon and 2 Puffs in the evening and 2 Puffs before bedtime. 18 g 1 02/07/2023 Active Ibuprofen 600 MG Oral Tablet (Motrin) Take 1 Tablet by mouth in the morning and 1 Tablet at noon and 1 Tablet before bedtime. with food for pain. 30 Tablet 1 06/22/2023 Active metFORMIN HCl 500 MG Oral Tablet (Glucophage)Indica tions:Type 2 diabetes mellitus with hemoglobin A1c goal of less than 7.0% (HCC) TAKE ONE TABLET BY MOUTH EVERY MORNING 180 Tablet 1 07/17/2023 Active Ozempic (1 MG/DOSE) 4 MG/3ML Subcutaneous Solution Pen-injector (Semaglutide (1 MG/DOSE)) INJECT 1MG UNDER THE SKIN ONCE A WEEK 3 mL 11 09/08/2023 Active amLODIPine Besylate 5 MG Oral Tablet (Norvasc)Indicatio ns:HTN, goal below 140/90 TAKE ONE TABLET BY MOUTH EVERY DAY IN THE MORNING 90 Tablet 2 10/10/2023 Active Losartan Potassium 100 MG Oral Tablet (Cozaar)Indication s:HTN, goal below 140/90 TAKE ONE TABLET BY MOUTH EVERY MORNING 90 Tablet 2 10/10/2023 Active Levothyroxine Sodium 112 MCG Oral Tablet (Levoxyl)Indicatio ns:Hypothyroidism TAKE ONE TABLET BY MOUTH EVERY DAY IN THE MORNING 90 Tablet 2 10/10/2023 Active Jardiance 25 MG Oral Tablet (Empagliflozin)Ind ications:Type 2 diabetes mellitus with hemoglobin A1c goal of less than 7.0% (HCC) TAKE ONE TABLET BY MOUTH EVERY MORNING 90 Tablet 1 11/09/2023 Active Venlafaxine HCl ER 37.5 MG Oral Capsule Extended Release 24 Hour (Effexor XR) TAKE ONE CAPSULE BY MOUTH EVERY MORNING DO NOT CUT, CRUSH, OR CHEW 30 Capsule 5 12/10/2023 Active Atorvastatin Calcium 40 MG Oral Tablet (Lipitor)Indicatio ns:Dyslipidemia Take 1 Tablet by mouth in the morning. In the morning.. 90 Tablet 1 01/23/2024 Active Triamcinolone Acetonide 0.5 % External Cream (Aristocort) Apply topically to affected area 2 times a day. To affected area. 60 g 5 02/08/2024 Active Colestipol HCl 1 GM Oral Tablet (Colestid)Indicati ons:History of laparoscopic cholecystectomy,Ch ronic diarrhea Take 1 Tablet by mouth in the morning. 180 Tablet 2 02/27/2024 Active documented as of this encounter (statuses as of 04/11/2024) Active Problems Problem Noted Date Diagnosed Date [...] as of this encounter (statuses as of 04/11/2024) Resolved Problems Problem Noted Date Diagnosed Date [...] as of this encounter (statuses as of 04/11/2024) Immunizations Name Administration Dates Next Due COVID-19 mRNA, LNP-s, No Pre serve, 2-Dose Series (Pfizer) 08/16/2021,02/02/2021,01/12/2021 Covid-19, Mrna, Lnp-s, Pf, B ivalent, 30 Mcg, IM, 12 yrs and above (Pfizer) 08/05/2022 PPD 12/15/2009,10/04/2009,09/23/2008 Pneumococcal Conjugate Vacci ne, 20-valent ([id number]) 08/25/2022 Pneumococcal Polysaccharide PPV23 (Pneumovax) 12/15/2009 TD, [...] on file documented as of this encounter Last Filed Vital Signs Vital Sign Reading Time Taken Comments Blood Pressure 119/68 04/11/2024 2:49 PM EDT Pulse 90 04/11/2024 2:49 PM EDT Temperature 36.6 C (97.9 F) 04/11/2024 2:49 PM ED T Respiratory Rate - - Oxygen Saturation - - Inhaled Oxygen Concentration - - Weight 92.4 kg (203 lb 11.2 oz) 04/11/2024 2:49 PM EDT Height 167.6 cm (5' 6") 04/11/2024 2:49 PM EDT Body Mass Index 32.88 04/11/2024 2:49 PM EDT documented in this encounter Progress Notes * Leona Rae CRNP - 04/11/2024 2:46 PM EDT DATE OF SERVICE: 04/11/2024 REFERRING PHYSICIAN: Silke Qiu MD CC: Elevated LFTs, epigastric pain HPI: Melida Wesley is a 53 year old female, referred by Silke Qiu MD for evaluation of elevated LFTs and epigastric pain. Patient reports that few weeks ago she has a epigastric pain with associated chills but no fevers, jaundice, nausea or vomiting. She is status post cholecystectomy. Upon evaluation noted to have elevated LFTs: T bili 0.3, AST 77, ALT 239, alkaline phosphatase 134. Repeat blood work 2 weeks later showed normal LFTs. She denies any new medications, although her colestipol was reduced to once a day now. She had beenon the statin for a while. She denies taking acetaminophen products, no herbal supplements or [id number] medications otherwise. She was a former smoker. She rarely drinks alcohol. Last drank 2 glasses of wine on mother's day. Denies illicit drugs. Denies travels, sick contacts or antibiotic use. 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 Dyslipidemia, goal LDL below 160 Hypothyroidism PPD positive 10/28/2010 Presence of intrauterine contraceptive device removed Family History Problem Relation Name Age of Onset Rheum arthritis Mother Heart Disorder Father NE Hypertension Father Multiple Sclerosis Sister Cirrhosis Brother Breast Cancer No significant family history Colon cancer No significant family history Ovarian cancer No significant family history Past Surgical History: Procedure Laterality Date DENTAL SURGERY PROCEDURE NEC wisdom teeth FLUORO CHOLECYSTOGRAM GALLBLADDER W CONTRAST 1995 Social History Tobacco Use Smoking status: Former Current packs/day: 0.00 Types: Cigarettes Quit date: 11/16/1990 Years since quittin.4 Smokeless tobacco: Never Vaping Use Vaping status: Never Used Substance Use Topics Alcohol use: No Drug use: No Review of patient's allergies indicates: Allergen Reactions Vicodin Nausea/vomiting Current Outpatient Medications Medication Sig Dispense Refill Glucose Blood (ACCU-CHEK GUIDE) STRP Use as directed 4 times a day as needed for Hyperglycemia (high sugar). dx code E11.9 300 Strip 3 Accu-Chek FastClix Lancets Use as directed 4 times a day as needed for Hyperglycemia (high sugar). Use up to four times a day as directed for DM, dx code E11.9 300 Each 3 ProAir HFA 108 (90 Base) MCG/ACT Inhalation Aerosol Solution Inhale 2 Puffs by mouth in the morningand 2 Puffs at noon and 2 Puffs in the evening and 2 Puffs before bedtime. 18 g 1 Ibuprofen 600 MG Oral Tablet (Motrin) Take 1 Tablet by mouth in the morning and 1 Tablet at noon and 1 Tablet before bedtime. with food for pain. 30 Tablet 1 metFORMIN HCl 500 MG Oral Tablet (Glucophage) TAKE ONE TABLET BY MOUTH EVERY MORNING 180 Tablet 1 Ozempic (1 MG/DOSE) 4 MG/3ML Subcutaneous Solution Pen-injector (Semaglutide (1 MG/DOSE)) INJECT 1MG UNDER THE SKIN ONCE A WEEK 3 mL 11 amLODIPine Besylate 5 MG Oral Tablet (Norvasc) TAKE ONE TABLET BY MOUTH EVERY DAY IN THE MORNING 90Tablet 2 Losartan Potassium 100 MG Oral Tablet (Cozaar) TAKE ONE TABLET BY MOUTH EVERY MORNING 90 Tablet 2 Levothyroxine Sodium 112 MCG Oral Tablet (Levoxyl) TAKE ONE TABLET BY MOUTH EVERY DAY IN THE MORNING 90 Tablet 2 Jardiance 25 MG Oral Tablet (Empagliflozin) TAKE ONE TABLET BY MOUTH EVERY MORNING 90 Tablet 1 Venlafaxine HCl ER 37.5 MG Oral Capsule Extended Release 24 Hour (Effexor XR) TAKE ONE CAPSULE BY MOUTH EVERY MORNING DO NOT CUT, CRUSH, OR CHEW 30 Capsule 5 Atorvastatin Calcium 40 MG Oral Tablet (Lipitor) Take 1 Tablet by mouth in the morning. In the morning.. 90 Tablet 1 Triamcinolone Acetonide 0.5 % External Cream (Aristocort) Apply topically to affected area 2 times a day. To affected area. 60 g 5 Colestipol HCl 1 GM Oral Tablet (Colestid) Take 1 Tablet by mouth in the morning. 180 Tablet 2 No current facility-administered medications for this visit. REVIEW OF SYSTEMS: See HPI above; All other findings negative. EXAM: Filed Vitals: 04/11/24 1449 BP: 119/68 Pulse: 90 Temp: 36.6 C (97.9 F) Weight: 92.4 kg (203 lb 11.2 oz) Height: 1.676 m (5' 6") GENERAL: Well developed and well nourished in no acute distress. SKIN: No rashes, ulcers, jaundice or spider angiomata. HEENT: Normocephalic, sclera clear, pharynx normal. NECK: Supple, trachea midline, no JVD. LUNGS: Clear to auscultation bilaterally, no respiratory distress or accessory muscles used. HEART: Regular rate & rhythm, no murmurs and no gallops. ABDOMEN: Normal bowel sounds, soft and nontender EXTREMITIES: No palmar erythema, no ankle edema, no skin discoloration, no clubbing, no cyanosis. NEURO: No lateralizing findings. Sensory/Motor grossly normal. ASSESSMENT AND PLAN: Melida Wesley is a 53 year old female w hx of elevated LFTs and epigastric pain. LFTs has normalized. US showed hepatic steatosis. Exam benign today wo pain recurrence. Given her description of symptoms, wonder if she may have choledocholithiasis or biliary colic. She iss/p cholecystectomy. I advised no further workup at this time unless her symptoms recur, and then we should repeat LFTs and perhaps consider EGD w EUS evaluation. She advised to avoid ETOH, and limitAPAP uses to 4g a day if using, avoid hepatotoxic med/supplements as well. I spent a total of 45 minutes on the date of service in review of patient's record, and previously obtained information in person and appropriate medical visit, discussion and education of plan, withpatient and/or caregiver, placing orders for tests/referral/procedures as medically necessary and documentation of pertinent clinical information in patient's medical records for their visit today. RETURN TO CLINIC: [facility] R: 04/11/2024 documented in this encounter Nursing Notes * Brittany Rahman CMA - 04/11/2024 2:49 PM EDT Chief Complaint Patient presents with NEW PATIENT New pt ref by Dr Qiu for abd pain and elevated LFT's. Pt states abd pain has subsided and she thinks it was an episode of heartburn. documented in this encounter Plan of Treatment Scheduled Referrals Name Type Priority Associated Diagnoses Orde r Schedule ADULT GASTROENTEROLOGY REFERRAL OP Referral Within 10 days (routine) Abnormal LFTs History of laparoscopic cholecystectomy Epigastric pain Ordered: 03/14/2024 Health Maintenance Due Date Last Done Comments Hepatitis B (1 of 3 - 19+ 3-dose series) 1987 HPV/Co-Test 1998 Colonoscopy 2013 Fecal Occult Blood Test 2013 Sigmoidoscopy 2013 Zoster Vaccines (1 of 2) 2018 Depression Monitoring 01/05/2021 01/06/2020 COVID-19 Vaccine ( season) 2023 08/05/2022, 08/16/2021, 02/02/2021, Additional history exists GFR 04/26/2024 04/26/2023, 0 05/2022, 08/31/2021, Additional history exists TSH 04/26/2024 04/26/2023, 0 05/2022, 08/31/2021, Additional history exists Influenza Vaccine (FLU shot) (Season Ended) 2024 HbA1c 08/30/2024 02/28/2024, 04/14, 08/22/2022, Additional [...] Cancer Screening 09/06/2025 Lipid Panel 04/26/2028 04/26/2023, 0 05/2022, 08/31/2021, Additional history exists DTaP,Tdap,and Td Vaccines (3 - Td or Tdap) 12/01/2030 12/01/2020, 06/22/2008 Pneumococcal Vaccine: Pediatrics (0 to 5 Years) and At-Risk Patients (6 to 64 Years) Completed 08/25/2022, 12/15/2009 GARDASIL-HPV IMMUNIZATION SERIES Aged Out No longer eligible based on patient's age to complete this topic HIV Screening Discontinued Hepatitis C Screening Discontinued MENINGOCOCCAL (MENACTRA/MENVEO) Aged Out No longer eligible based on patient's age to complete this topic documented as of this encounter Medical Devices Not on filedocumented as of this encounter Visit Diagnoses Diagnosis Elevated LFTs- Primary Other abnormal blood chemistry Epigastric pain Abdominal pain, epigastric documented in this encounter Care Teams Technical Support Associate Relationship Specialty Start Date End Date Renu Coley DO [address] [place] [address] PCP - General Family Medicine 08/05/21 documented as of this encounter
--- OUTSIDE RECORDS SUMMARY | 2024-09-21 14:01 | External Medical Summary ---
Author Name Unknown Address Unknown Organization K09:[facility] [place] [address] Laboratory Report Ordering Provider Test Date Status MARCIE PARDO 09/18/2024 10:44:16 Final Observation Date Value Abnormality Reference (Units ) Status BUN 09/18/2024 10:44:16 18 6-20 (mg/dL) Final Creatinine 09/18/2024 10:44:16 0.7 0.5-1.0 (mg/dL) Final Glomerular filtration rate/1.73 sq M.predicted [Volume Rate/Area] in Serum, Plasma or Blood by Creatinine-based formula (CKD-EPI) 09/18/2024 10:44:16 >90 >=60 (mL/min) Final eGFR is calculated based on the CKD-EPI 2020 equation. Sodium 09/18/2024 10:44:16 142 135-146 (m mol/L) Final Potassium 09/18/2024 10:44:16 4.7 3.5-5.1 (m mol/L) Final Cl 09/18/2024 10:44:16 102 98-107 (mm ol/L) Final CO2 09/18/2024 10:44:16 27 22-32 (mmo l/L) Final Anion gap 09/18/2024 10:44:16 13 7-15 (mmol /L) Final Glucose 09/18/2024 10:44:16 116 70-120 (mg /dL) Final Albumin 09/18/2024 10:44:16 4.8 3.8-5.0 (g /dL) Final AST (Aspartate aminotransferase) 09/18/2024 10:44:16 77 Above high normal 10-35 (U/L) Final Alk Phos 09/18/2024 10:44:16 118 35-130 (U/ L) Final Bilirubin, Total 09/18/2024 10:44:16 0.6 <=1 .2 (mg/dL) Final Calcium 09/18/2024 10:44:16 10.3 Above high normal 8. 4-10.2 (mg/dL) Final Protein 09/18/2024 10:44:16 7.5 6.0-8.3 (g /dL) Final ALT (Alanine aminotransferase) 09/18/2024 10:44:16 109 Above high normal 10-35 (U/L) Final Performing Location [facility] [place] [address]
--- OUTSIDE RECORDS SUMMARY | 2024-09-21 14:01 | External Medical Summary | Summary of Care ---
Author Name Unknown Organization [facility] Address [address] [place] [address] Phone [phone] Care Team Providers Care Ship Joiner Name Role Phone Renu Coley DO Primary Care Provider Encounter Details Date Type Department Care Team (Late st Contact Info) Description 04/03/2024 Telephone Family Practice [facility] [address] [place] [id number] Renu Coley DO [address] [place] [id number] Allergies Active Allergy Reactions Criticality Noted Date Comments Vicodin Nausea/vomiting 06/05/2007 documented as of this encounter (statuses as of 07/03/2024) Medications Medication Sig Dispensed Refills Start Date [...] EVERY MORNING 90 Tablet 1 11/09/2023 Active Atorvastatin Calcium 40 MG Oral Tablet [...] as of this encounter (statuses as of 07/03/2024) Active Problems Problem Noted Date Diagnosed Date [...] as of this encounter (statuses as of 07/03/2024) Resolved Problems Problem Noted Date Diagnosed Date [...] as of this encounter (statuses as of 07/03/2024) Immunizations Name Administration Dates Next Due COVID-19 mRNA, LNP-s, No Pre serve, 2-Dose Series (intelloCut) 08/16/2021,02/02/2021,01/12/2021 Covid-19, Mrna, Lnp-s, Pf, B ivalent, 30 Mcg, IM, 12 yrs and above (intelloCut) 08/05/2022 PPD 12/15/2009,10/04/2009,09/23/2008 Pneumococcal Conjugate Vacci ne, 20-valent ([id number]) 08/25/2022 Pneumococcal Polysaccharide PPV23 (Pneumovax) 12/15/2009 TD, [...] encounter Miscellaneous Notes * Telephone Encounter - Tania Ramirez MED ASSIST - 04/03/2024 4:43 PM EDT Patient is aware. She is scheduled with Gastro 06.28.24. * Telephone Encounter - Tania Ramirez MED ASSIST - 04/03/2024 4:43 PM EDT ----- Message from Silke Qiu MD sent at 03/14/2024 9:48 AM EDT ----- Ultrasound right upper quadrant-gallbladder surgically absent, hepatic steatosis , no ductal dilation Repeat LFT are normal. Refer to GI in view of h/o elevated LFT when had abd pain. documented in this encounter Plan of Treatment Health Maintenance Due Date Last Done Comments Hepatitis B Vaccine (1 of 3 - 19+ 3-dose series) 1987 HPV/Co-Test 1998 Colonoscopy 2013 Fecal Occult Blood Test 2013 Sigmoidoscopy 2013 Zoster Vaccines (1 of 2) 2018 Depression Monitoring 01/05/2021 01/06/2020 GFR 04/26/2024 04/26/2023, 05/2022, 08/31/2021, Additional history exists TSH 04/26/2024 [...] Not on filedocumented as of this encounter Care Teams Ship Joiner Relationship Specialty Start Date End Date Renu Coley DO [address] [place] [address] PCP - General Family Medicine 08/05/21 documented as of this encounter
--- OUTSIDE RECORDS SUMMARY | 2024-09-21 14:01 | External Medical Summary | Summary of Care ---
Author Name Unknown Organization [facility] Address [address] [facility] [address] Phone [phone] Care Team Providers Care Operations And Maintenance Technican Name Role Phone Hope Coley DO Primary Care Provider Reason for Visit * Reason Comments eRx-Medication Refill Encounter Details Date Type Department Care Team (Late st Contact Info) Description 06/20/2024 Refill Family Practice [facility] [address] [facility] [place] [address] Hope Coley DO [address] [facility] [place] [address] Dyslipidemia, goal LDL below 160*; Acquired hypothyroidism; HTN, goal below 140/90 Allergies Active Allergy Reactions Criticality Noted Date Comments Vicodin Nausea/vomiting 06/05/2007 documented as of this encounter (statuses as of 06/24/2024) Medications Medication Sig Dispensed Refills Start Date [...] for pain. 30 Tablet 1 3 Active metFORMIN HCl 500 MG Oral Tablet (Glucophage)Indic ations:Type 2 diabetes mellitus with hemoglobin A1c goal of less than 7.0% (HCC) TAKE ONE TABLET BY MOUTH EVERY MORNING 180 Tablet 1 3 Active Ozempic (1 MG/DOSE) 4 MG/3ML Subcutaneous Solution Pen-injector (Semaglutide (1 MG/DOSE)) INJECT 1MG UNDER THE SKIN ONCE A WEEK 3 mL 11 3 Active amLODIPine Besylate 5 MG Oral Tablet (Norvasc)Indicati ons:HTN, goal below 140/90 TAKE ONE TABLET BY MOUTH EVERY DAY IN THE MORNING 90 Tablet 2 3 Active Losartan Potassium 100 MG Oral Tablet (Cozaar)Indicatio ns:HTN, goal below 140/90 TAKE ONE TABLET BY MOUTH EVERY MORNING 90 Tablet 2 3 Active Levothyroxine Sodium 112 MCG Oral Tablet (Levoxyl)Indicati ons:Hypothyroidis m TAKE ONE TABLET BY MOUTH EVERY DAY IN THE MORNING 90 Tablet 2 3 Active Jardiance 25 MG Oral Tablet (Empagliflozin)In dications:Type 2 diabetes mellitus with hemoglobin A1c goal of less than 7.0% (HCC) TAKE ONE TABLET BY MOUTH EVERY MORNING 90 Tablet 1 4 Active Atorvastatin Calcium 40 MG Oral Tablet (Lipitor)Indicati ons:Dyslipidemia Take 1 Tablet by mouth in the morning. In the morning.. 90 Tablet 1 4 Active Triamcinolone Acetonide [...] THE CAPSULE 30 Capsule 2 4 Active Venlafaxine HCl ER 37.5 MG Oral Capsule Extended Release 24 Hour (Effexor XR) TAKE ONE CAPSULE BY MOUTH EVERY MORNING DO NOT CUT, CRUSH, OR CHEW 30 Capsule 5 4 06/23/20 24 Discontinued documented as of this encounter (statuses as of 06/24/2024) Active Problems Problem Noted Date Diagnosed Date Type 2 diabetes mellitus wit h hemoglobin A1c goal of less than 7.0% 04/25/2017 HTN, goal below 140/90 04/25/2017 Depression with anxiety 05/12/2015 PPD positive 10/28/2010 Overview: INH treated for 9 months Started 01/21/10 Finished 10/30/10 Dyslipidemia, goal LDL below 160 10/28/2010 Hypothyroidism 12/12/2005 Overview: 2005 Calculus of kidney documented as of this encounter (statuses as of 06/24/2024) Resolved Problems Problem Noted Date Diagnosed Date [...] as of this encounter (statuses as of 06/24/2024) Immunizations Name Administration Dates Next Due COVID-19 mRNA, LNP-s, No Pre serve, 2-Dose Series (Pfizer) 08/16/2021,02/02/2021,01/12/2021 Covid-19, Mrna, Lnp-s, Pf, B ivalent, 30 Mcg, IM, 12 yrs and above (Pfizer) 08/05/2022 PPD 12/15/2009,10/04/2009,09/23/2008 Pneumococcal Conjugate Vacci ne, 20-valent ([id number]) 08/25/2022 Pneumococcal Polysaccharide PPV23 (Pneumovax) 12/15/2009 TD, [...] * Telephone Encounter - Jayy Anderson - 06/24/2024 6:38 PM EDT Received message from [facility] regarding patient needing an appointment and labs. Patient was notified. Successfully contacted patient and provided [facility] message. * Telephone Encounter - Char Mayfield RP - 06/23/2024 10:14 AM EDTSigned Prescriptions: Disp Refills Venlafaxine HCl ER 37.5 MG Oral Capsule Ex*30 Cap*2 Sig: TAKE 1 CAPSULE BY MOUTH EVERY MORNING. DO NOT CUT, CRUSH OR CHEW THE CAPSULE Authorizing Provider: HOPE COLEY Ordering User: CHAR MAYFIELD * Telephone Encounter - Char Mayfield RP - 06/23/2024 10:11 AM EDT Provided 30 days supply with 2 refill. Per refill protocol patient should have ldl, cmp, tsh on file within past year. Reviewed AMP report, Care Gaps/Health Maintenance, medications list, and for anyroutine labs typically ordered for this patient. Lab [...] (telemedicine) Next Visit: Visit date not found Char Delgadillo, PharmD Clinical Pharmacist [facility] [phone] 06/23/2024 10:11 AM documented in this encounter Plan of Treatment Scheduled Orders Name Type Priority Associated Diagnoses Orde r Schedule COMPREHENSIVE METABOLIC PANEL Lab Routine Dyslipidemia, goal LDL below 160 HTN, goal below 140/90 Expected: 06/23/2024 (Approximate), Expires: 06/23/2025 LIPID PANEL WITH DIRECT LDL IF TG IS HIGH Lab Routine Dyslipidemia, goal LDL below 160 Expected: 06/23/2024 (Approximate), Expires: 06/23/2025 TSH WITH FREE T4 IF INDICATED Lab Routine Acquired hypothyroidism Expected: 06/23/2024 (Approximate), Expires: 06/23/2025 Health Maintenance Due Date Last Done Comments [...] 08/31/2021, Additional history exists B-12 02/27/2025 02/28/2024, 0 05/2022, 05/31/2020, Additional history exists Diabetic Eye [...] as of this encounter Visit Diagnoses Diagnosis Dyslipidemia, goal LDL below 160- Primary Other and unspecified hyperlipidemia Acquired hypothyroidism Unspecified hypothyroidism HTN, goal below 140/90 Unspecified essential hypertension documented in this encounter Care Teams Operations And Maintenance Technican Relationship Specialty Start Date End Date Hope Coley DO [address] [place] [address] PCP - General Family Medicine 08/05/21 documented as of this encounter
--- OUTSIDE RECORDS SUMMARY | 2024-09-21 14:01 | External Medical Summary | Summary of Care ---
Author Name Unknown Organization [facility] Address [address] [place] [address] Phone [phone] Care Team Providers Care Order Builder Name Role Phone Hope Coley DO Primary Care Provider Reason for Visit * Reason Comments eRx-Medication Refill Encounter Details Date Type Department Care Team (Late st Contact Info) Description 09/11/2024 Refill Family Practice [facility] [address] [place] [address] Hope Coley DO [address] [facility] [place] [address] Allergies Active Allergy Reactions Criticality Noted Date Comments Vicodin Nausea/vomiting 06/05/2007 documented as of this encounter (statuses as of 09/12/2024) Medications Glucose Blood (ACCU-CHEK GUIDE) STRPIndications :Type 2 diabetes mellitus with hemoglobin A1c goal of less than 7.0% (HCC) Use as directed 4 times a day as needed for Hyperglycemia (high sugar). dx code E11.9 300 Strip 3 019 Active Accu-Chek FastClix LancetsIndicati ons:Type 2 diabetes mellitus with hemoglobin A1c goal of less than 7.0% (HCC) Use as directed 4 times a day as needed for Hyperglycemia (high sugar). Use up to four times a day as directed for DM, dx code E11.9 300 Each 3 021 Active ProAir HFA 108 (90 Base) MCG/ACT Inhalation Aerosol Solution Inhale 2 Puffs by mouth in the morning and 2 Puffs at noon and 2 Puffs in the evening and 2 Puffs before bedtime. 18 g 1 023 Active Ibuprofen 600 MG Oral Tablet (Motrin) Take 1 Tablet by mouth in the morning and 1 Tablet at noon and 1 Tablet before bedtime. with food for pain. 30 Tablet 1 023 Active Jardiance 25 MG Oral Tablet (Empagliflozin) Indications:Typ e 2 diabetes mellitus with hemoglobin A1c goal of less than 7.0% (HCC) TAKE ONE TABLET BY MOUTH EVERY MORNING 90 Tablet 1 024 Active Triamcinolone Acetonide 0.5 % External Cream (Aristocort) Apply topically to affected area 2 times a day. To affected area. 60 g 5 Active Colestipol HCl 1 GM Oral Tablet (Colestid)Indic ations:History of laparoscopic cholecystectomy ,Chronic diarrhea Take 1 Tablet by mouth in the morning. 180 Tablet 2 024 Active Atorvastatin Calcium 40 MG Oral Tablet (Lipitor)Indica tions:Dyslipide abram TAKE 1 TABLET BY MOUTH EVERY MORNING 90 Tablet Active amLODIPine Besylate 5 MG Oral Tablet (Norvasc)Indica tions:HTN, goal below 140/90 TAKE 1 TABLET BY MOUTH EVERY MORNING 90 Tablet Active Losartan Potassium 100 MG Oral Tablet (Cozaar)Indicat ions:HTN, goal below 140/90 TAKE 1 TABLET BY MOUTH EVERY MORNING 90 Tablet Active Levothyroxine Sodium 112 MCG Oral Tablet (Levoxyl)Indica tions:Hypothyro idism TAKE 1 TABLET BY MOUTH EVERY MORNING 90 Tablet Active metFORMIN HCl 500 MG Oral Tablet (Glucophage)Ind ications:Type 2 diabetes mellitus with hemoglobin A1c goal of less than 7.0% (HCC) TAKE 1 TABLET BY MOUTH EVERY MORNING 90 Tablet Active Venlafaxine HCl ER 37.5 MG Oral Capsule Extended Release 24 Hour (Effexor XR) TAKE 1 CAPSULE BY MOUTH EVERY MORNING . DO NOT CUT, CRUSH, OR CHEW THE CAPSULE 30 Capsule Active Ozempic (1 MG/DOSE) 4 MG/3ML Subcutaneous Solution Pen-injector (Semaglutide (1 MG/DOSE)) INJECT 1MG SUBCUTANEOUSLY (UNDER THE SKIN) EVERY WEEK 3 mL 024 Active Ozempic (1 MG/DOSE) 4 MG/3ML Subcutaneous Solution Pen-injector (Semaglutide (1 MG/DOSE)) INJECT 1MG UNDER THE SKIN ONCE A WEEK 3 mL 11 023 2023 Discontinued Venlafaxine HCl ER 37.5 MG Oral Capsule Extended Release 24 Hour (Effexor XR) TAKE 1 CAPSULE BY MOUTH EVERY MORNING. DO NOT CUT, CRUSH OR CHEW THE CAPSULE 30 Capsule 2 024 2023 Discontinued documented as of this encounter (statuses as of 09/12/2024) Active Problems Problem Noted Date Diagnosed Date [...] as of this encounter (statuses as of 09/12/2024) Resolved Problems Problem Noted Date Diagnosed Date [...] as of this encounter (statuses as of 09/12/2024) Immunizations Name Administration Dates Next Due COVID-19 mRNA, LNP-s, No Pre serve, 2-Dose Series (Pfizer) 08/16/2021,02/02/2021,01/12/2021 Covid-19, Mrna, Lnp-s, Pf, B ivalent, 30 Mcg, IM, 12 yrs and above (Pfizer) 08/05/2022 PPD 12/15/2009,10/04/2009,09/23/2008 Pneumococcal Conjugate Vacci ne, 20-valent ([id number]) 08/25/2022 Pneumococcal Polysaccharide PPV23 (Pneumovax) 12/15/2009 TD, [...] encounter Miscellaneous Notes * Telephone Encounter - Hope Coley DO - 09/12/2024 1:17 PM EST Signed Prescriptions: Disp Refills Venlafaxine HCl ER 37.5 MG Oral Capsule Ex*30 Cap*0 Sig: TAKE 1 CAPSULE BY MOUTH EVERY MORNING . DO NOT CUT, CRUSH, OR CHEW THE CAPSULE Authorizing Provider: HOPE COLEY Ozempic (1 MG/DOSE) 4 MG/3ML Subcutaneous *3 mL 0 Sig: INJECT 1MG SUBCUTANEOUSLY (UNDER THE SKIN) EVERY WEEK Authorizing Provider: HOPE COLEY * Telephone Encounter - Esau Koch, package line operator - 09/12/2024 12:35 PM ESTPending Prescriptions: Disp Refills Venlafaxine HCl ER 37.5 MG Oral Capsule Ex*30 Cap*0 Sig: TAKE 1 CAPSULE BY MOUTH EVERY MORNING . DO NOT CUT, CRUSH, OR CHEW THE CAPSULE Ozempic (1 MG/DOSE) 4 MG/3ML Subcutaneous *3 mL 0 Sig: INJECT 1MG SUBCUTANEOUSLY (UNDER THE SKIN) EVERY WEEK * Telephone Encounter - Esau Koch, package line operator - 09/12/2024 12:35 PM EST Received message from [facility] regarding patient needing an appointment and labs. Call Placed, Pt was agreeable to set up both an office visit and lab appointment. Patient's lab appointment is walk in andoffice visit is 10/28/2024. Thank you, Esau Koch Customer Experience Specialist [facility] 09/12/2024, 12:35 PM * Telephone Encounter - Armando Prado, [facility] - 09/12/2024 12:23 PM EST Pending Prescriptions: Disp Refills Venlafaxine HCl ER 37.5 MG Oral Capsule Ex*30 Cap*0 Sig: TAKE 1 CAPSULE BY MOUTH EVERY MORNING . DO NOT CUT, CRUSH, OR CHEW THE CAPSULE Ozempic (1 MG/DOSE) 4 MG/3ML Subcutaneous *3 mL 0 Sig: INJECT 1MG SUBCUTANEOUSLY (UNDER THE SKIN) EVERY WEEK * Telephone Encounter - Armando Prado, [facility] - 09/12/2024 12:17 PM EST Unable to authorize medication refills for pended medication(s) at this time. Part of the protocol criteria used for refill authorization was not satisfied. Per refill protocol patient should have OV with PCP and ROUTINE LABS on file within past year. Reviewed AMP report, Care Gaps/Health Maintenance, medications list, and for any routine labs typically ordered for this patient. Lab orders placed. Please contact patient to schedule office visit with PRIMARY CARE and advise of labs ordered for blood draw.. Recommend patient to fast if able for labs. Patient may still have water and regular medications. Advise to obtain labs before requesting the next refill. Last Visit: 06/22/2023 (in office), Visit date not found (telemedicine) Next Visit: Visit date not found After contacting patient, please forward request to Hope Coley DO. Thanks, Armando Prado, PharmD Clinical Pharmacist [facility] [phone] 09/12/2024, 12:22 PM documented in this encounter Plan of Treatment Upcoming Encounters Date Type Department Care Team (Late st Contact Info) Description 10/28/2024 2:00 PM EST Office Visit [facility] [address] [facility] [place] [address] Hope Coley DO [address] [facility] [place] [address] Health Maintenance Due Date Last Done Comments Hepatitis B Vaccine (1 of 3 - 19+ 3-dose series) 1987 HPV/Co-Test 1998 Colonoscopy 2013 Fecal Occult Blood Test 2013 Sigmoidoscopy 2013 Zoster Vaccines (1 of 2) 2018 Depression Monitoring 01/05/2021 01/06/2020 GFR 04/26/2024 04/26/2023, 05/2022, 08/31/2021, Additional history exists TSH 04/26/2024 04/26/2023, 0 05/2022, 08/31/2021, Additional history exists COVID-19 Vaccine [...] 10/24/2021, 03/31/2021, Additional history exists Albumin/Creatinine Ratio 02/27/20252 024, 08/22/2022, 08/31/2021, Additional history exists B-12 [...] filedocumented as of this encounter Care Teams Order Builder Relationship Specialty Start Date End Date Hope Coley DO [address] [place] [address] PCP - General Family Medicine 08/05/21 documented as of this encounter
--- OUTSIDE RECORDS SUMMARY | 2024-09-21 14:01 | External Medical Summary | Summary of Care ---
Author Name Unknown Organization [facility] Address [address] [facility] [place] [address] Phone [phone] Care Team Providers Care Manager Club Name Role Phone Vianca Sears Cecilia PINK Primary Care Provider Encounter Details Date Type Department Care Team (Late st Contact Info) Description 06/26/2024 Orders Only PATIENT PORTAL DO NOT DELETE THIS DEPT USED BY [place] [id number] Allergies Active Allergy Reactions Criticality Noted Date Comments Vicodin Nausea/vomiting 06/05/2007 documented as of this encounter (statuses as of 06/26/2024) Medications Medication Sig Dispensed Refills Start Date [...] the morning. 180 Tablet 2 02/27/2024 Active Venlafaxine HCl ER 37.5 MG Oral Capsule Extended Release 24 Hour (Effexor XR) TAKE 1 CAPSULE BY MOUTH EVERY MORNING. DO NOT CUT, CRUSH OR CHEW THE CAPSULE 30 Capsule 2 06/23/2024 Active documented as of this encounter (statuses as of 06/26/2024) Active Problems Problem Noted Date Diagnosed Date [...] as of this encounter (statuses as of 06/26/2024) Resolved Problems Problem Noted Date Diagnosed Date [...] as of this encounter (statuses as of 06/26/2024) Immunizations Name Administration Dates Next Due COVID-19 mRNA, LNP-s, No Pre serve, 2-Dose Series ([employer]) 08/16/2021,02/02/2021,01/12/2021 Covid-19, Mrna, Lnp-s, Pf, B ivalent, 30 Mcg, IM, 12 yrs and above ([employer]) 08/05/2022 PPD 12/15/2009,10/04/2009,09/23/2008 Pneumococcal Conjugate Vacci ne, 20-valent ([id number]) 08/25/2022 Pneumococcal Polysaccharide PPV23 (Pneumovax) 12/15/2009 TD, [...] on file documented as of this encounter Plan of Treatment Health Maintenance Due Date Last Done Comments Hepatitis B Vaccine (1 of 3 - 19+ 3-dose series) 1987 HPV/Co-Test 1998 Colonoscopy 2013 Fecal Occult Blood Test 2013 Sigmoidoscopy 2013 Zoster Vaccines (1 of 2) 2018 Depression Monitoring 01/05/2021 01/06/2020 GFR 04/26/2024 04/26/2023, 11/0 05/2022, 08/31/2021, Additional history exists TSH 04/26/2024 04/26/2023, 11/0 05/2022, 08/31/2021, Additional history exists COVID-19 Vaccine (2022- season) 2024 08/05/2022, 08/16/2021, 02/02/2021, Additional history [...] filedocumented as of this encounter Care Teams Manager Club Relationship Specialty Start Date End Date Renu Coley DO [address] [place] [address] PCP - General Family Medicine 08/05/21 documented as of this encounter
--- OUTSIDE RECORDS SUMMARY | 2024-09-21 14:01 | External Medical Summary ---
Author Name Unknown Address Unknown Organization [id number]:LABORATORY [facility] - [address] [place] [address] Laboratory Report Ordering Provider Test Date Status BESS ARNETT 09/18/2024 10:44:16 Final Observation Date Value Abnormality Reference (Units ) Status Lipase 09/18/2024 10:44:16 45 13-60 (U/L ) Final Performing Location LAB[facility]ATORY [facility] - [address] [place] [address]
--- NOTE | 2024-09-22 07:49 | Discharge Summary ---
Date of Service September 22, 2024 Admission HPI Per Admitting Provider 53-year-old female with past medical history significant for type 2 diabetes, hypothyroidism, hyperlipidemia, hypertension, calculus of kidney, depression with anxiety, PPD positive presents with epigastric abdominal pain and found to have significant elevated LFTs and choledocholithiasis on MRI scan. Patient says she is having these epigastric pains on and off for about a week. Pain is in epigastric region radiating to the back. And also has some discomfort in the shoulders. Associated with nausea. She could not eat much today. She had a history of similar episode many years ago and had gallbladder removed. Denies any fevers. Normal bowel and bladder movements. Denies any headache or dizziness. No runny nose or sore throat. No cough. No difficulty swallowing. No chest pain or shortness of breath. Currently resting comfortably and hemodynamically stable. With the pain medication , pain is improved. Past medical history. As mentioned above Past surgical history. Dental surgery. Fluoroscopy cholecystogram gallbladder with contrast. Social history. . Quit smoking 1990. No alcohol use. No drug use. Family history. Brother had cirrhosis. Father had VT. Hypertension. Sister has multiple sclerosis. Mother has rheumatoid arthritis. Admission Exam Per Admitting Provider Physical Exam: General-Not in distress Head- atraumatic Eyes- PERRL. ENT- oropharynx clear Neck- supple, no JVD. Lungs- clear to auscultation no wheezing or crackles Heart- regular rate and rhythm; no murmur, no gallop. Abdomen- normal bowel sounds, soft, nontender, no distension Extremities- no pretibial edema, no erythema seen Neuro- alert, oriented PERRL, no facial palsy; no dysarthria; moves extremities Principal Diagnosis Choledocholithiasis with obstruction, hypertension, hypothyroidism Discharge Exam Lying in bed without any distress Constitutional well developed, well nourished and + obese; not ill appearing Eyes PERRL, conjunctivae normal, anicteric sclerae ENMT external ear and nose normal, oropharynx normal Neck trachea midline, no thyromegaly Respiratory no respiratory distress Auscultation: lungs clear to auscultation bilaterally Cardiovascular Rate/Rhythm: regular rate and regular rhythm; not tachycardic Heart Sounds: normal S1 and normal S2; no murmur Extremities: no edema Gastrointestinal (Abdomen) Inspection/Auscultation: normal bowel sounds; abdomen not distended Percussion/Palpation: abdomen soft; abdomen nontender Neurologic normal touch/pain/proprioception and moves all extremities; no focal motor deficits Lymphatic no cervical or axillary lymphadenopathy Discharge Data Allergies Allergy/AdvReac Type Severity Reaction Status Date / Time acetaminophen [From Vicodin] AdvReac Mild 'Made her Unverified 09/19/24 15:19 head really hot then really cold. Unpleasant exp" hydrocodone [From Vicodin] AdvReac Mild 'Made her Unverified 09/19/24 15:19 head really hot then really cold. Unpleasant exp" Consultations 09/19/24 21:07 ED Decision to Admit Stat 09/20/24 08:00 Consult Gastroenterology Routine Ordered Studies 09/19/24 12:31 CT abd pelvis IV con only Stat CT angio chest dissec wo/w con Stat 09/19/24 14:14 MR MRCP Stat Hospital Course (1) Choledocholithiasis with obstruction: 53-year-old female with past medical history significant for type 2 diabetes, hypothyroidism, hyperlipidemia, hypertension, calculus of kidney, depression with anxiety, PPD positive presents with epigastric abdominal pain and found to have significant elevated LFTs and choledocholithiasis on MRI scan. Patient says she is having these epigastric pains on and off for about a week. Pain is in epigastric region radiating to the back. And also has some discomfort in the shoulders. Associated with nausea. She could not eat much today. She had a history of similar episode many years ago and had gallbladder removed. Denies any fevers. Normal bowel and bladder movements. Denies any headache or dizziness. No runny nose or sore throat. No cough. No difficulty swallowing. No chest pain or shortness of breath. Currently resting comfortably and hemodynamically stable. With the pain medication , pain is improved. Presented with,Abdominal pain,In epigastric region radiating to the back Elevated LFTs MRCP shows;"Suspected obstructive choledocholithiasis in the distal common bile duct at the ampulla resulting in upstream biliary obstruction with moderate intrahepatic biliary dilation. Superimposed additional process such as stricturing may be also present." ER talked with [facility] and [facility] for transfer for ERCP but no ERCP service available until Sunday in all above places as it was thought it was not an emergency. Plan to transfer on Sunday evening to [facility] ER started on Zosyn which will be continued Appreciate GI input and recommendation She remains stable without any abdominal pain, nausea and or vomiting and no fever and/or chills Remains medically stable without any significant symptoms She will be transferred to [facility] for ERCP tomorrow CTA chest okay except for 1.1 into 1.4 cm nodule in the mediastinum and needs 3 months follow-up CT abdomen pelvis okay (2) Abnormal LFTs: (3) Hypertension: (4) Hypothyroidism: Plan Other significant medical conditions remained stable and are as below; Hypertension Continue amlodipine and losartan Will monitor Hyperlipidemia Hold statin for now Hypothyroidism Continue Synthyroid Diabetes Hold home p.o. medications Insulin sliding scale Will check HbA1c levels Will monitor the blood sugars DVT prophylaxis SCDs for now Disposition Close monitor in med/telemetry Full code Total Time Total Time Spent Total Time Spent (In Minutes): 35 minutes Discharge Plan Discharge Items Patient Disposition: Transfer Acute Care Hospital Reason For Visit: ABDOMINAL PAIN, ELEVATED LFTs Discharge Diagnosis: Choledocholithiasis with obstruction, hypertension, hypothyroidism Condition on Discharge: Good Activity: Resume your previous activity Non-emergency contact: Primary Care Provider Call non-emergency contact if: you have any medication questions and your symptoms worsen Follow-up/Referrals: Renu Coley, DO [Primary Care Provider] - ( Please make an appointment with your PCP within 7 days following discharge from the facility) Diet: Clear liquid Addtl Attending Provider Instructions: Please take precautions to avoid falls Take your medications as advised Keep appointments with the healthcare providers Follow-up for inpatient medications were continued as below on transfer: Current Inpatient Medications Acetaminophen (Acetaminophen 325 Mg Tab) 650 mg PO Q4H PRN PRN Reason: Headache or Pain Stop: 10/20/24 08:05 Last Admin: 09/20/24 09:12 Dose: 650 mg Amlodipine Besylate (Amlodipine Besylate 5 Mg Tab) 5 mg PO QAM [facility] Stop: 10/20/24 08:59 Last Admin: 09/21/24 09:06 Dose: 5 mg Colestipol HCl (Colestipol Hcl 1 Gm Tab) 2 gm PO DAILY@1000 SON Stop: 10/20/24 09:59 Last Admin: 09/20/24 10:10 Dose: 2 gm Dextrose (Dextrose 50% 50 Ml Syringe) 25 - 50 ml IV UD PRN; Protocol PRN Reason: Hypoglycemia Protocol Stop: 10/20/24 00:58 Glucagon (Glucagon For Inj 1 Mg Vial) 1 mg SQ UD PRN; Protocol PRN Reason: Hypoglycemia Protocol Stop: 10/20/24 00:58 Glucose (Glucose 40% Gel 15 Gm Tube) 15 - 30 gm PO UD PRN; Protocol PRN Reason: Hypoglycemia Protocol Stop: 10/20/24 00:58 Glucose (Glucose 10 Tab/Tube) 4 - 8 tab PO UD PRN; Protocol PRN Reason: Hypoglycemia Protocol Stop: 10/20/24 00:58 Hydromorphone HCl (Hydromorphone Inj 0.5 Mg/0.5 Ml Syr) 0.25 mg IV Q4H PRN PRN Reason: Moderate Pain (Scale 4, 5, 6) Stop: 10/04/24 00:58 Hydromorphone HCl (Hydromorphone Inj 0.5 Mg/0.5 Ml Syr) 0.5 mg IV Q4H PRN PRN Reason: Severe Pain (Scale 7, 8, 9,10) Stop: 10/04/24 00:58 Piperacillin Sod/Tazobactam Sod (Zosyn) 4.5 gm in 100 mls @ 25 mls/hr IV Q8H [facility]; Protocol Stop: 09/30/24 01:59 Last Admin: 09/21/24 09:05 Dose: 25 mls/hr Insulin Aspart (Insulin Aspart Per Unit Charge) 0 units SC ACHS [facility] Stop: 10/20/24 00:58 Last Admin: 09/21/24 09:06 Dose: Not Given Levothyroxine Sodium (Levothyroxine Sodium 112 Mcg Tablet) 112 mcg PO DAILYBB [facility] Stop: 10/20/24 06:29 Last Admin: 09/21/24 06:02 Dose: 112 mcg Losartan Potassium (Losartan Potassium 50 Mg Tab) 100 mg PO QAM [facility] Stop: 10/20/24 08:59 Last Admin: 09/21/24 09:05 Dose: 100 mg Miscellaneous (Carbohydrates For Hypoglycemia ) 15 - 30 gm PO UD PRN PRN Reason: Hypoglycemia Protocol Stop: 10/20/24 00:58 Nitroglycerin (Nitroglycerin Sl 0.4 Mg/Tab Tab) 0.4 mg SL Q5M PRN PRN Reason: Chest Pain Stop: 10/20/24 00:58 Ondansetron HCl (Ondansetron Inj 2 Mg/Ml 2 Ml Vial) 4 mg IV Q6H PRN PRN Reason: Nausea Stop: 10/20/24 00:58 Last Admin: 09/21/24 06:43 Dose: 4 mg Pantoprazole Sodium (Pantoprazole 40 Mg Tab) 40 mg PO QAM [facility] Stop: 10/20/24 08:59 Last Admin: 09/21/24 09:05 Dose: 40 mg Venlafaxine HCl (Venlafaxine Hcl Xr 37.5 Mg Capxr) 37.5 mg PO QAM [facility] Stop: 10/20/24 08:59 Last Admin: 09/21/24 09:06 Dose: 37.5 mg Pending Studies at Discharge: No Stand-Alone Forms: My [facility] Skilled Items Patient informed of condition?: Yes DNR: No Discharge Level of Care: Other Communicable Disease: No Discharge Prognosis: Stable Lines: Peripheral IV Urinary Catheter: No Medications and DC Order Prescriptions: Continued atorvastatin 40 mg tablet 40 mg PO QAM metformin 500 mg tablet 500 mg PO QAM venlafaxine 37.5 mg capsule,extended release 24hr 37.5 mg PO QAM venlafaxine 25 mg tablet 25 mg PO UD omeprazole 20 mg capsule,delayed release(DR/EC) 20 mg PO QAM colestipol 1 gram tablet 2 g PO QAM levothyroxine 112 mcg tablet 112 mcg PO QAM Jardiance 25 mg tablet 25 mg PO QAM Ozempic 1 mg/dose (4 mg/3 mL) pen injector 1 mg subcut WK Rx Instructions: Sunday amlodipine 5 mg tablet 5 mg PO QAM losartan 100 mg tablet 100 mg PO QAM Gaviscon 1 dose PO DIRECTED PRN (Reason: Other) Discharge Orders: Discharge Order (Routine); Ordered 09/21/24 Ordered By: Alcides Dupont/Other Patient Handouts: Managing Type 2 Diabetes Admission Data Admit Date/Time: 09/19/24 23:20 Attending Provider: Alcides Nick Admit Provider: Agustin Chand Primary Care Provider: Renu Coley Other Providers: Agustin Chand; Mika Novoa Other Interventions: Discharge Summary Assessment (RN) Last Done: 09/21/24 09:36
== END 2024-09-21 10:25 | disposition short-term general hospital (02) | DRG 446 ==
LOC: ED 11:01 → 2N 23:20